=== PATIENT | male | born 1960 | race Two or more races ===

== ENCOUNTER 2018-06-28 10:52 | Outpatient (CLI) | payer OTHER ==
[~2018-06-28 10:52] MED LIST: ACET1TAB14 PO; ALBU18HF2 INH; AMLO10TA6 PO; CARI350T27 PO; CARV12.52 PO; CLOP75TA15 PO; DAPT500V2 IV; GABA-534 PO; INSU100I26 SQ; LEVO750T21 PO; LISI10TA5 PO; MYCO500T PO; OXYC-133 PO; PRED5TAB48 PO; PROM6.256 PO; SIMV10TA6 PO; TACR1CAP7 PO; ZOLP10TA6 PO
== END 2018-06-28 23:59 ==
LOC: WOU 10:52
PROVIDERS: ATTEND Podiatrist Foot & Ankle Surgery
DX: E11.621 Type 2 diabetes mellitus with foot ulcer (principal); L97.514 Non-pressure chronic ulcer of other part of right foot with necrosis of bone; E11.59 Type 2 diabetes mellitus with other circulatory complications; I73.9 Peripheral vascular disease, unspecified; Z89.412 Acquired absence of left great toe; Z89.411 Acquired absence of right great toe; E11.22 Type 2 diabetes mellitus with diabetic chronic kidney disease; I12.0 Hypertensive chronic kidney disease with stage 5 chronic kidney disease or end stage renal disease; N18.6 End stage renal disease; Z87.891 Personal history of nicotine dependence; Z95.828 Presence of other vascular implants and grafts
CPT/HCPCS: 11043; 11046; A6402 ×2; Z7610

== ENCOUNTER 2018-06-29 18:16 | Inpatient (IN) | payer OTHER ==
[~2018-06-29] VITALS: Ht 175.3 cm; Wt 60.1 kg
[~2018-06-29 18:16] MED LIST changes: -AMLO10TA6 PO; +AMLO10TA7 PO
--- NOTE | 2018-06-29 20:15 | NUR ---
BBPA FOR ABNORMAL HGB AND HCT. PT C/O OF PAIN OF THE RL FOOT D/T GANGRENE. PT AAOX 4, VSS. DENIES CP, SOB, DIZZINESS, N/V @ THIS TIME. RR EVEN & UNLABORED, AWAITING EVAL BY MD/TELECOM COORDINATOR & WILL CONT TO MONITOR.
[2018-06-29 21:34] LABS: BASOPHILS # (AUTO) 0.2 /CMM (0.0-0.2); BASOPHILS % (AUTO) 1.4 % (0.0-2.0); EOSINOPHILS % (AUTO) 1.7 % (0.0-6.0); HEMATOCRIT 26 % (39-51); HEMOGLOBIN 8.4 g/dL (13.5-17.5); LYMPHOCYTES # (AUTO) 2.9 /CMM (0.8-4.8); LYMPHOCYTES % (AUTO) 27.5 % (20.0-44.0); MEAN CORPUSCULAR HGB CONC 33 g/dl (31.0-36.0); MEAN CORPUSCULAR VOLUME 74 fL (80-96); MONOCYTES # (AUTO) 0.9 /CMM (0.1-1.30); MONOCYTES % (AUTO) 8.3 % (2.0-12.0); NEUTROPHILS # (AUTO) 6.5 /CMM (1.8-8.9); NEUTROPHILS % (AUTO) 61.1 % (43.0-81.0); PLATELET COUNT (AUTO) 449 /CMM (150-450); RED BLOOD CELL COUNT(AUTO) 3.47 MIL/uL (4.5-6.0); WHITE BLOOD COUNT (AUTO) 10.7 K/uL (4.3-11.0)
[2018-06-29 21:43] LABS: CALCIUM, SERUM 9.2 mg/dL (8.5-10.1); CREATININE 1.3 mg/dL (0.6-1.3); POTASSIUM 4.6 mmol/L (3.5-5.1)
[2018-06-29 21:52] LABS: ALBUMIN 2.7 g/dL (3.4-5.0); BILIRUBIN,DIRECT 0.1 mg/dL (0.0-0.2); BILIRUBIN,TOTAL 0.4 mg/dL (0.2-1.0); TOTAL PROTEIN, SERUM 7.2 g/dL (6.4-8.2)
--- NOTE | 2018-06-29 21:55 | NUR ---
REPORT GIVEN TO SHEILA JENSEN FOR CONT OF CARE.
--- NOTE | 2018-06-29 21:58 | NUR ---
PT PLACED ON THE MONITOR AND CONTINUOUS PULSE OX. PT'S RT FOOT ELEVATED ON A PILLOW.
--- NOTE | 2018-06-29 22:02 | NUR ---
XRAY AT BEDSIDE.
[2018-06-29] MEDS ORDERED: IV NS 0.9% 1,000 ML BAG IV ONE (22:30)
--- NOTE | 2018-06-29 22:40 | NUR ---
PT IS GOING TO [facility]. ADMITTING MD: EH
--- NOTE | 2018-06-29 22:43 | NUR ---
pt is assigned to med surg rm#: [id number], dx: anemia / gangrene on right foot, and accepting md: dr raines
--- NOTE | 2018-06-29 22:44 | NUR ---
LAB CALLED. PRBC WAS CANCELLED BY DR. SHULTZ.
--- NOTE | 2018-06-29 22:45 | NUR ---
CALLING REPORT TO MS NURSE. NURSE IS NOT ASSIGNED.
[2018-06-29 22:47] LABS: IRON, SERUM 25 ug/dl (50-175); TOTAL IRON BINDING CAPACITY 179 ug/dl (250-450)
--- NOTE | 2018-06-29 23:01 | NUR ---
REPORT GIVEN TO MARTA SOSA FOR DEJAH.
--- NOTE | 2018-06-29 23:10 | NUR ---
MS SWITCH TECHNICIAN NOTES Patient came to unit via gurney. Alert, oriented x 4. Breathing even and unlabored. Not in any distress. Denies any chest pain. Peripheral IV from ER running. PICC line on R arm patent. AV shunt on LFA noted. Skin assessment done. Pictures in chart. Gangrene on plantar surface of R foot noted. Cleansed with NS, patted dry, covered with gauze and abdominal pad and wrapped with kerlix. Wound consult ordered. Patient denies smoking, drinking and recreational drug use. Patient is complaining of pain on R foot but does not want pain meds as of now, prefers to pray and meditate. Oriented to call tavares, placed within reach. Bed in low, locked position. Will monitor accordingly
[2018-06-29 23:15] VITALS: BP 139/71
[2018-06-29 23:30] VITALS: BP 139/71
[2018-06-30] MEDS ORDERED: Z GUARD REMEDY 2 OZ OINT TP PRN
[2018-06-30] MEDS ORDERED: ACETAMINOPHEN 325 MG TABLET PO PRN
[2018-06-30] MEDS ORDERED: ZOLPIDEM TARTRATE 5 MG TABLET PO PRN
[2018-06-30] MEDS ORDERED: MAGNESIUM HYDROXIDE 30 ML UDC PO PRN
[2018-06-30 00:16] LABS: EOSINOPHILS % (MANUAL) 1 % (0-4); LYMPHOCYTES % (MANUAL) 21 % (16-48); MONOCYTES % (MANUAL) 7 % (0-11.0); NEUTROPHILS % (MANUAL) 71 (42-76)
--- NOTE | 2018-06-30 00:45 | NUR ---
MS RN NOTES Pharmacy called and asked to clarify regarding lovenox. Patient has no active bleeding. Dr. Kaplan made aware regarding pharmacist's concern. Dr. Kaplan verified to give lovenox. Orders noted and carried out
[2018-06-30] MEDS: ENOXAPARIN SODIUM 40 MG/0.4 ML DISP.SYRIN SQ SCH ×2 (01:02→21:00)
[2018-06-30] MEDS ORDERED: DEXTROSE 50%-WATER 50 ML DISP.SYRIN IV PRN (03:00)
[2018-06-30] MEDS: PROMETHAZINE HCL SYRUP 6.25 MG/5 ML UDC PO SCH ×4 (06:00→17:28)
--- NOTE | 2018-06-30 06:40 | NUR ---
RN NOTES BSL 145. PATIENT REFUSED INSULIN. PER PATIENT, HE DIDN'T HAVE SOMETHING TO EAT SINCE LAST NIGHT.
[2018-06-30] MEDS: BLOOD SUGAR DIAGNOSTIC 1 EACH STRIP IN SCH ×4 (06:45→21:28)
[2018-06-30 06:53] LABS: BASOPHILS # (AUTO) 0.1 /CMM (0.0-0.2); BASOPHILS % (AUTO) 1.1 % (0.0-2.0); EOSINOPHILS % (AUTO) 2.4 % (0.0-6.0); HEMATOCRIT 22 % (39-51); HEMOGLOBIN 7.1 g/dL (13.5-17.5); LYMPHOCYTES # (AUTO) 3.8 /CMM (0.8-4.8); LYMPHOCYTES % (AUTO) 46.8 % (20.0-44.0); MEAN CORPUSCULAR HGB CONC 33 g/dl (31.0-36.0); MEAN CORPUSCULAR VOLUME 74 fL (80-96); MONOCYTES # (AUTO) 0.5 /CMM (0.1-1.30); MONOCYTES % (AUTO) 6.6 % (2.0-12.0); NEUTROPHILS # (AUTO) 3.5 /CMM (1.8-8.9); NEUTROPHILS % (AUTO) 43.1 % (43.0-81.0); PLATELET COUNT (AUTO) 366 /CMM (150-450); RED BLOOD CELL COUNT(AUTO) 2.94 MIL/uL (4.5-6.0)
[2018-06-30] MEDS: INSULIN REGULAR, HUMAN 100 UNIT/ML 3 ML VIAL SQ PRN ×4 (07:01→21:31)
[2018-06-30 07:11] LABS: CALCIUM, SERUM 8.9 mg/dL (8.5-10.1); CREATININE 1.2 mg/dL (0.6-1.3); MAGNESIUM 1.6 mg/dL (1.8-2.4); POTASSIUM 4.4 mmol/L (3.5-5.1)
--- NOTE | 2018-06-30 07:15 | NUR ---
RN CLOSING NOTES PATIENT IN BED, ALERT, ORIENTED X 4. REMAINS STABLE. BREATHING EVEN AND UNLABORED. NOT IN ANY DISTRESS. PICC LINE PURPLE PORT CLOGGED. UNABLE TO FLUSH. PER PATIENT, RN WAS NOT ABLE TO FLUSH IT IN ER. BLOOD VISIBLE IN THE LINE. RED PORT IS PATENT. SAFETY MEASURES IN PLACE. CALL ALEGRIA WITHIN REACH. BED IN LOW, LOCKED POSITION. ENDORSED DEJAH TO AM RN
--- NOTE | 2018-06-30 07:38 | NUR ---
MS RN OPENING NOTES RECEIVED PATIENT IN STABLE CONDITION. IN NO APPARENT DISTRESS. BEDSIDE RAILS ARE UPX2. BED IS LOCKED AND LOWERED. CALL LIGHT IS WITHIN REACH. IV LINE IS INTACT AND PATENT. WILL CONTINUE TO MONITOR PATIENT.
[2018-06-30 08:00] VITALS: BP 137/65
[2018-06-30] MEDS: SIMVASTATIN 10 MG TABLET PO SCH (08:10)
[2018-06-30] MEDS: GABAPENTIN 300 MG CAPSULE PO SCH ×3 (08:10→17:27)
[2018-06-30] MEDS: CARISOPRODOL 350 MG TABLET PO SCH ×2 (08:10→17:27)
[2018-06-30] MEDS: AMLODIPINE BESYLATE 10 MG TABLET PO SCH (08:12)
[2018-06-30] MEDS: CARVEDILOL 12.5 MG TABLET PO SCH ×2 (08:12→17:28)
[2018-06-30] MEDS: LISINOPRIL (10MG) 10 MG TABLET PO SCH (08:13)
[2018-06-30] MEDS: CLOPIDOGREL BISULFATE 75 MG TABLET PO SCH (08:13)
[2018-06-30] MEDS ORDERED: DAPTOMYCIN 500 MG/VIAL VIAL IV SCH (09:00)
[2018-06-30] MEDS: MYCOPHENOLATE MOFETIL 250 MG CAPSULE PO SCH ×2 (10:17→21:14)
[2018-06-30] MEDS: predniSONE 5 MG TABLET PO SCH (10:17)
[2018-06-30] MEDS ORDERED: HYDROMORPHONE 1 MG/1 ML DISP.SYRIN IV PRN (10:30)
[2018-06-30] MEDS: LINEZOLID RTU BAG 600 MG in PREMIX 1 EA IV SCH ×2 (12:56→22:01)
[2018-06-30] MEDS: LEVOFLOXACIN (750 MG) 750 MG TABLET PO SCH (13:34)
[2018-06-30] MEDS: TACROLIMUS ANHYDROUS 1 MG CAPSULE PO SCH ×2 (13:34→21:14)
--- NOTE | 2018-06-30 14:02 | NUR ---
PATIENTS PICC LINE IS NON FUNCTIONING. CALLED NURSING LUMBER LOADER TO PROVIDE PICC LINE NURSE. ZYVOX, AND MAGNESIUM POSTPONED UNTIL PICC LINE NURSE COMES TO ASSESS PICC LINE.
[2018-06-30 16:00] VITALS: BP 112/63
[2018-06-30] MEDS: Magnesium 1GM/D5W 100ML PREMIX 100 ML IV SCH ×2 (17:44→21:11)
[2018-06-30] MEDS: GLUCERNA SHAKE 237 ML CAN PO SCH (17:56)
--- NOTE | 2018-06-30 18:11 | NUR ---
MS RN CLOSING NOTES PATIENT IS STABLE CONDITION. IN NO APPARENT DISTRESS. BEDSIDE RAILS ARE UPX2. BED IS LOCKED AND LOWERED. CALL LIGHT IS WITHIN REACH. IV LINE IS INTACT AND PATENT. ALL NEEDS WERE MET. WILL ENDORSE CARE TO INDUSTRIAL STAFF NURSE NURSE FOR DEJAH.
--- NOTE | 2018-06-30 18:57 | NUR ---
WILL ENDORSE LAST BAG OF MAGNESIUM TO LAUNDERER HAND NURSE.
--- NOTE | 2018-06-30 19:00 | NUR ---
MS RN NOTES RECEIVE PT IN BED A/O X 4, NO PAIN AT THIS TIME. IN STABLE CONDITION, NOT IN DISTRESS, SAFETY MEASURES IN PLACE. WILL CONTINUE TO MONITOR.
[2018-06-30 20:00] VITALS: BP 117/42
[2018-06-30 21:24] VITALS: BP 117/42
[2018-06-30] MEDS ORDERED: ALTEPLASE CATHFLO 2 MG/VIAL XX ONE (21:30)
--- NOTE | 2018-06-30 21:59 | NUR ---
paged hospitalist imitation marble mechanic spoke to Dr. Rosaura akins clarified if she wanted me to transfuse 1 PRBC relayed recent HGB because critical care specialist was calling if we transfuse but no orders. Per Dr. Kaplan No transfusion at this time read back and verified orders noted and carried out. NPO midnight and HOLD lovenox Addendum: 07/01/18 at 0244 by KHANG LUKE RN no active bleeding noted
[2018-06-30] MEDS: HYDROMORPHONE 1 MG/1 ML DISP.SYRIN IV PRN (22:02)
[2018-07-01] MEDS: BLOOD SUGAR DIAGNOSTIC 1 EACH STRIP IN SCH ×4 (05:52→21:37)
[2018-07-01] MEDS: PROMETHAZINE HCL SYRUP 6.25 MG/5 ML UDC PO SCH ×5 (05:52→23:45)
[2018-07-01] MEDS: INSULIN REGULAR, HUMAN 100 UNIT/ML 3 ML VIAL SQ PRN ×4 (05:53→21:44)
--- NOTE | 2018-07-01 06:21 | NUR ---
MS RN CLOSING NOTES REMAINS STABLE. TOLERATING ROOM AIR 98%. NPO MIDNIGHT, ALL NURSING CARE RENDERED. KEPT CLEAN AND DRY AND COMFORTABLE, NEEDS ATTENDED AND ANTICIPATED. OFFLOAD HEELS AND ELBOWS. ON LOW BED AT ALL TIMES TO ENSURE SAFETY. SAFE HAZARD FREE ENVIRONMENT PROVIDED. CALL LIGHT WITHIN EASY TO REACH. WILL ENDORSE NEXT SHIFT CONTINUITY OF CARE
[2018-07-01] MEDS ORDERED: ANESTHESIA TRAY IN PYXIS 1 EA TRAY MC ONE (06:24)
[2018-07-01] MEDS ORDERED: BUPIVACAINE MPF 0.5% W/EPI INJ 30 ML VIAL ONE (06:24)
[2018-07-01] MEDS ORDERED: LIDOCAINE HCL/PF 1% 30 ML SDV ONE (06:24)
--- NOTE | 2018-07-01 06:51 | NUR ---
DENTAL PROSTHETIST BY 2 O.R TEAM VIA MAMADOU PT LEFT FOR SURGERY TODAY VS STABLE
--- NOTE | 2018-07-01 07:00 | NUR ---
MS RN OPENING NOTE RECEIVED REPORT FROM SHEILA QUIÑONEZ. PATIENT HEADED DOWN TO SURGERY IN STABLE CONDITION. WILL CONTINUE CARE WHEN PATIENT RETURNS
--- NOTE | 2018-07-01 07:10 | NUR ---
WOUND CARE CONSULT WOUND CARE RECEIVED CONSULT FOR GANGRENE ON R PLANTAR FOOT. WOUND CARE WILL DEFER CONSULT AND TREATMENT PLANS TO DPM DR HERNANDEZ HE IS CURRENTLY FOLLOWING. PATIENT WITH FABIANA AT 17, ALL PRESSURE ULCER PREVENTION MEASURES ARE NOTED TO BE IN PLACE. WILL SEE PRN.
[2018-07-01 07:24] LABS: BASOPHILS # (AUTO) 0.1 /CMM (0.0-0.2); BASOPHILS % (AUTO) 0.7 % (0.0-2.0); EOSINOPHILS % (AUTO) 3.4 % (0.0-6.0); HEMATOCRIT 23 % (39-51); HEMOGLOBIN 7.5 g/dL (13.5-17.5); LYMPHOCYTES # (AUTO) 2.9 /CMM (0.8-4.8); LYMPHOCYTES % (AUTO) 33.6 % (20.0-44.0); MEAN CORPUSCULAR HGB CONC 32 g/dl (31.0-36.0); MEAN CORPUSCULAR VOLUME 74 fL (80-96); MONOCYTES # (AUTO) 0.8 /CMM (0.1-1.30); MONOCYTES % (AUTO) 9.7 % (2.0-12.0); NEUTROPHILS # (AUTO) 4.6 /CMM (1.8-8.9); NEUTROPHILS % (AUTO) 52.6 % (43.0-81.0); PLATELET COUNT (AUTO) 413 /CMM (150-450); RED BLOOD CELL COUNT(AUTO) 3.18 MIL/uL (4.5-6.0); WHITE BLOOD COUNT (AUTO) 8.7 K/uL (4.3-11.0)
[2018-07-01 07:31] LABS: CALCIUM, SERUM 9.2 mg/dL (8.5-10.1); CREATININE 1.3 mg/dL (0.6-1.3); MAGNESIUM 2.1 mg/dL (1.8-2.4); PHOSPHORUS 3.2 mg/dL (2.5-4.9); POTASSIUM 4.4 mmol/L (3.5-5.1)
--- NOTE | 2018-07-01 07:47 | NUR ---
MS RN NOTE PATIENT BACK FROM OR. OR CANCELLED, PER ELLA BRUSH OR BROOM CUTTER PATIENT IS NOT STABLE ENOUGH TO DO PROCEDURE. SPOKE WITH DR. AVILEZ AND WILL DO BEDSIDE RIGHT FOOT WOUND DEBRIDEMENT CONSENT AT BEDSIDE AND SIGNED. MICHELLE ANGLIN AND [facility] Addendum: 07/01/18 at 0844 by JOE ELIZONDO RN PATIENT IN BED ALERT AND ORIENTED ALERT AND ORIENTED x4 NO PAIN AT THIS TIME NO SOB OR DISTRESS NOTED ON ROOM AIR TOLERATING WELL. ABLE TO COMMUNICATE NEEDS. CALL LIGHT WITHIN REACH. SAFETY MEASURES IMPLEMENTED. HEMATOLOGY AND NEPHRO TO BE CONSULTED. WILL CONTINUE TO CONTINUITY OF CARE
[2018-07-01 08:00] VITALS: BP 110/74
[2018-07-01] MEDS: GLUCERNA SHAKE 237 ML CAN PO SCH ×3 (08:00→17:20)
--- NOTE | 2018-07-01 08:36 | NUR ---
MS RN NOTE PER DR AVILEZ TO [facility] FOR CONSULT. TICKET SCHEDULER DOCTOR PAGED AWAITING CALL BACK
[2018-07-01] MEDS: DAKINS HALF STRENGTH (0.25%) 480 ML BOTTLE TOP SCH (09:00)
[2018-07-01] MEDS: MYCOPHENOLATE MOFETIL 250 MG CAPSULE PO SCH ×2 (09:29→20:31)
[2018-07-01] MEDS: TACROLIMUS ANHYDROUS 1 MG CAPSULE PO SCH ×2 (09:30→20:30)
[2018-07-01] MEDS: CLOPIDOGREL BISULFATE 75 MG TABLET PO SCH (09:30)
[2018-07-01] MEDS: CARISOPRODOL 350 MG TABLET PO SCH ×2 (09:30→17:21)
[2018-07-01] MEDS: predniSONE 5 MG TABLET PO SCH (09:30)
[2018-07-01] MEDS: SIMVASTATIN 10 MG TABLET PO SCH (09:30)
[2018-07-01] MEDS: GABAPENTIN 300 MG CAPSULE PO SCH ×3 (09:30→17:21)
[2018-07-01] MEDS: LISINOPRIL (10MG) 10 MG TABLET PO SCH (09:31)
[2018-07-01] MEDS: AMLODIPINE BESYLATE 10 MG TABLET PO SCH (09:31)
[2018-07-01] MEDS: CARVEDILOL 12.5 MG TABLET PO SCH ×2 (09:31→17:21)
[2018-07-01] MEDS: LINEZOLID RTU BAG 600 MG in PREMIX 1 EA IV SCH (09:37)
[2018-07-01] MEDS: HYDROMORPHONE 1 MG/1 ML DISP.SYRIN IV PRN ×3 (09:45→20:30)
--- NOTE | 2018-07-01 11:50 | NUR ---
MS RN NOTE BLOOD SUGAR 256 6 UNITS OF INSULIN GIVEN AND FOOD AT BEDSIDE
[2018-07-01] MEDS: LEVOFLOXACIN (750 MG) 750 MG TABLET PO SCH (12:54)
--- NOTE | 2018-07-01 15:16 | NUR ---
MS RN NOTE PATIENT REQUESTING PAIN MEDICATION. DILAUDID IV PUSH FOR 9/10 PAIN ON RIGHT FOOT. PAIN MEDICATION GIVEN. RESPIRATIONS 18. NO SIGNS OF DISTRESS NOTED. WILL REASSESS FOR EFFECTIVENESS
--- NOTE | 2018-07-01 15:18 | NUR ---
MS RN NOTE WHILE AT BEDSIDE TALKING TO PATIENT ABOUT COLONOSCOPY/EGD PROCEDURE WITH DR. TOMLINSON PATIENT STILL REFUSING TO HAVE PREP DONE AND PROCEDURE DONE. PATIENT STATED "IF IT'S NOT BROKEN IT DOESNT NEED TO BE FIXED, I DONT WANT ANYTHING GOING INTO MY MOUTH OR RECTUM. NO GI EXAMS. GI MD AWARE
[2018-07-01 16:00] VITALS: BP 125/56
--- NOTE | 2018-07-01 16:28 | NUR ---
MS RN NOTE NOTIFIED DR GILLESPIE IN REGARDS TO PATIENT CONSIDERING BLOOD TRANSFUSION. AWAITING RESPONSE
[2018-07-01] MEDS ORDERED: EPOETIN ALFA (20,000 UNIT) 20,000 UNIT/ML VIAL SQ ONE ×2 (16:30→18:00)
--- NOTE | 2018-07-01 18:00 | NUR ---
MS RN NOTE BLOOD SUGAR-204 4 UNITS GIVEN FOOD AT BEDSIDE
--- NOTE | 2018-07-01 18:11 | NUR ---
ms rn note one time dose of epogen sq given.
--- NOTE | 2018-07-01 18:17 | NUR ---
ms rn note spoke with patient in regards to blood transfusion patient stated " i spoke with my daughter i am going to hold off on the transfusion for now until its absolutely necessary because of my transplant i dont want any rejection. so for now i will not get the blood. i will wait for my labs in the morning and discuss with in the morning. informed doctor el about patient refusing blood at this time. will inform plant operator/shift supervisor nurse for lulu.
--- NOTE | 2018-07-01 18:21 | NUR ---
MS RN CLOSING NOTE PATIENT SITTING IN CHAIR ALERT AND ORIENTED x4 NO PAIN AT THIS TIME NO SOB OR DISTRESS NOTED ON ROOM AIR TOLERATING WELL. ABLE TO COMMUNICATE NEEDS. CALL LIGHT WITHIN REACH AT ALL TIMES. SAFETY MEASURES IMPLEMENTED. HEMATOLOGY AND NEPHRO CONSULTED WITH PATIENT PER DR. HERNANDEZ. ALL DUE MEDICATIONS GIVEN ORDERED. ALL NURSING CARE NEEDS ATTENDED TO NEEDED. PICC LINE KEPT CLEAN DRY AND INTACT. IV INTACT AND PATENT AND FLUSHES WELL. SURGERY FOR RIGHT FOOT HELD PER DR. HERNANDEZ. RIGHT FOOT WOUND DEBRIDEMENT DONE AT BEDSIDE THIS MORNING. PATIENT OFFERED CRUTCHES AT THIS TIME TO GET AROUND ROOM AND RESTROOM. ONE TIME DOSE OF EPOGEN GIVEN. PATIENT REFUSED BLOOD TRANSFUSION AND EGD/COLONOSCOPY MD AWARE. PAIN MEDICATION GIVEN NEEDED. BLOOD SUGAR CHECKED AND INSULIN GIVEN PRN. WILL ENDORSE TO LONG WALL SHEAR OPERATOR NURSE FOR DEJAH
--- NOTE | 2018-07-01 19:28 | NUR ---
MS RN NOTES RECEIVE PT SITTING IN THE CHAIR A/O X 4, IN STABLE CONDITION, NOT IN DISTRESS, SAFETY MEASURES IN PLACE. WILL CONTINUE TO MONITOR.
[2018-07-01 20:00] VITALS: BP 103/48
[2018-07-01] MEDS: LINEZOLID 600 MG TABLET PO SCH (20:31)
[2018-07-01] MEDS: ENOXAPARIN SODIUM 40 MG/0.4 ML DISP.SYRIN SQ SCH (20:35)
[2018-07-01] MEDS: ZOLPIDEM TARTRATE 10 MG TABLET PO PRN (21:37)
[2018-07-01 21:52] LABS: OCCULT BLOOD STOOL NEGATIVE (NEGATIVE)
[2018-07-02] MEDS: PROMETHAZINE HCL SYRUP 6.25 MG/5 ML UDC PO SCH ×4 (05:00→23:14)
[2018-07-02] MEDS: BLOOD SUGAR DIAGNOSTIC 1 EACH STRIP IN SCH ×4 (05:49→21:03)
[2018-07-02] MEDS: INSULIN REGULAR, HUMAN 100 UNIT/ML 3 ML VIAL SQ PRN ×4 (05:49→21:25)
--- NOTE | 2018-07-02 06:01 | NUR ---
MS RN NOTES INSULIN 2 UNITS NON ADMIN PT REFUSED DESPITE EXPLAINING RISKS AND BENEFITS OFFERED 3 TIMES STILL REFUSED. PER PT HE'S BLOOD SUGAR IS FINE. 152 MG/DL
--- NOTE | 2018-07-02 06:12 | NUR ---
MS RN CLOSING NOTES ASLEEP AND EASILY AWAKEN, TOLERATING ROOM AIR 99%. STABLE PT. PT STILL REFUSED BLOOD TRANSFUSION DESPITE EXPLAINING RISKS AND BENEFITS. KEPT CLEAN AND DRY AND COMFORTABLE, ALL NURSING CARE RENDERED. NEEDS ATTENDED AND ANTICIPATED. OFFLOAD HEELS AND ELBOWS. GOOD SKIN CARE. ON LOW BED AT ALL TIMES TO ENSURE SAFETY. SAFE HAZARD FREE ENVIRONMENT PROVIDED. CALL LIGHT WITHIN EASY TO REACH. WILL ENDORSE NEXT SHIFT CONTINUITY OF CAR
[2018-07-02 07:04] LABS: BASOPHILS % (AUTO) 0.5 % (0.0-2.0); EOSINOPHILS % (AUTO) 2.2 % (0.0-6.0); HEMATOCRIT 22 % (39-51); HEMOGLOBIN 7.2 g/dL (13.5-17.5); LYMPHOCYTES # (AUTO) 3.1 /CMM (0.8-4.8); LYMPHOCYTES % (AUTO) 37.6 % (20.0-44.0); MEAN CORPUSCULAR HGB CONC 33 g/dl (31.0-36.0); MEAN CORPUSCULAR VOLUME 73 fL (80-96); MONOCYTES # (AUTO) 0.8 /CMM (0.1-1.30); MONOCYTES % (AUTO) 9.9 % (2.0-12.0); NEUTROPHILS # (AUTO) 4.1 /CMM (1.8-8.9); NEUTROPHILS % (AUTO) 49.8 % (43.0-81.0); PLATELET COUNT (AUTO) 376 /CMM (150-450); RED BLOOD CELL COUNT(AUTO) 2.99 MIL/uL (4.5-6.0); WHITE BLOOD COUNT (AUTO) 8.2 K/uL (4.3-11.0)
[2018-07-02 07:12] LABS: CALCIUM, SERUM 8.8 mg/dL (8.5-10.1); CREATININE 1.4 mg/dL (0.6-1.3); MAGNESIUM 1.8 mg/dL (1.8-2.4); PHOSPHORUS 3.4 mg/dL (2.5-4.9); POTASSIUM 4.5 mmol/L (3.5-5.1)
--- NOTE | 2018-07-02 07:42 | NUR ---
MS RN NOTES PATIENT RECEIVED RESTING INSIDE ROOM. SLEEPING, EASILY AROUSABLE THROUGH VERBAL AND TACTILE STIMULI. BREATHING EVEN AND UNLABORED. DENIES ANY DISCOMFORT AT THIS TIME. PATIENT CALM AND RELAXED. PICCLINE ON OSMAN, NO DRAINAGE NOTED ON SITE. WILL CONTINUE TO MONITOR. BED LOCKED AND IN LOW POSITION. BILATERAL UPPER SIDE RAILS UP AND LOCKED. CALL LIGHT WITHIN EASY REACH
[2018-07-02 08:00] VITALS: BP 119/46
[2018-07-02] MEDS: LINEZOLID 600 MG TABLET PO SCH ×2 (09:06→20:38)
[2018-07-02] MEDS: predniSONE 5 MG TABLET PO SCH (09:06)
[2018-07-02] MEDS: GABAPENTIN 300 MG CAPSULE PO SCH ×3 (09:06→16:57)
[2018-07-02] MEDS: CARVEDILOL 12.5 MG TABLET PO SCH ×2 (09:06→16:57)
[2018-07-02] MEDS: SIMVASTATIN 10 MG TABLET PO SCH (09:06)
[2018-07-02] MEDS: LISINOPRIL (10MG) 10 MG TABLET PO SCH (09:06)
[2018-07-02] MEDS: CARISOPRODOL 350 MG TABLET PO SCH ×2 (09:07→16:57)
[2018-07-02] MEDS: TACROLIMUS ANHYDROUS 1 MG CAPSULE PO SCH ×2 (09:08→20:38)
[2018-07-02] MEDS: MYCOPHENOLATE MOFETIL 250 MG CAPSULE PO SCH ×2 (09:08→20:36)
[2018-07-02] MEDS: AMLODIPINE BESYLATE 10 MG TABLET PO SCH (09:08)
[2018-07-02] MEDS: CLOPIDOGREL BISULFATE 75 MG TABLET PO SCH (09:24)
[2018-07-02] MEDS: HYDROMORPHONE 1 MG/1 ML DISP.SYRIN IV PRN ×3 (09:28→20:39)
[2018-07-02] MEDS: GLUCERNA SHAKE 237 ML CAN PO SCH ×3 (10:38→16:57)
[2018-07-02] MEDS: LEVOFLOXACIN (750 MG) 750 MG TABLET PO SCH (12:29)
[2018-07-02] MEDS: SOD FERRIC GLUC 125 MG in IV NS 0.9% 100 ML IV SCH (13:20)
[2018-07-02] MEDS: DAKINS HALF STRENGTH (0.25%) 480 ML BOTTLE TOP SCH (13:20)
[2018-07-02 16:28] VITALS: BP 140/47
--- NOTE | 2018-07-02 19:05 | NUR ---
MS RN NOTES PATIENT RESTING INSIDE ROOM. AWAKE, ALERT AND ORIENTED X4. VERBALLY RESPONSIVE AND RESPONDS TO VERBAL AND TACTILE STIMULI. BREATHING EVEN AND UNLABORED. NO ACUTE DISTRESS. ALL NURSING NEEDS ATTENDED AND MET. WOUND CARE RENDERED TO RIGHT FOOT AND PATIENT TOLERATED WELL. PATIENT KEPT CLEAN, DRY AND COMFORTABLE. WILL ENDORSE TO INCOMING SHIFT FOR DEJAH. BED LOCKED AND IN LOW POSITION. BILATERAL UPPER SIDE RAILS UP AND LOCKED. CALL LIGHT WITHIN EASY REACH
--- NOTE | 2018-07-02 19:07 | NUR ---
MS RN NOTES RECEIVE PT IN BED A/O X 4, IN STABLE CONDITION, NOT IN DISTRESS, SAFETY MEASURES IN PLACE. WILL CONTINUE TO MONITOR.
[2018-07-02 20:00] VITALS: BP 121/68
[2018-07-02 20:20] VITALS: BP 121/68
[2018-07-02] MEDS: ENOXAPARIN SODIUM 40 MG/0.4 ML DISP.SYRIN SQ SCH (20:36)
[2018-07-02] MEDS: ZOLPIDEM TARTRATE 10 MG TABLET PO PRN (20:38)
--- NOTE | 2018-07-02 21:54 | NUR ---
MS RN NOTES NON ADMIN OF LOVENOX PT REFUSED MEDICATION DESPITE EXPLAINING RISKS AND BENEFITS ALSO H/H IS LOW. HOSPITALIST AWARE
[2018-07-03] MEDS: INSULIN REGULAR, HUMAN 100 UNIT/ML 3 ML VIAL SQ PRN ×4 (05:56→21:59)
[2018-07-03] MEDS: BLOOD SUGAR DIAGNOSTIC 1 EACH STRIP IN SCH ×4 (05:56→21:49)
[2018-07-03] MEDS: PROMETHAZINE HCL SYRUP 6.25 MG/5 ML UDC PO SCH ×3 (05:57→18:02)
--- NOTE | 2018-07-03 06:28 | NUR ---
MS RN CLOSING NOTES ASLEEP AND EASILY AWAKEN, NOT IN DISTRESS. KEPT CLEAN AND DRY AND COMFORTABLE, ALL NURSING CARE RENDERED. NEEDS ATTENDED AND ANTICIPATED. OFFLOAD HEELS AND ELBOWS. GOOD SKIN CARE PROVIDED. NO COMPLAIN OF PAIN AT THIS TIME. ON LOW BED AT ALL TIMES TO ENSURE SAFETY. SAFE HAZARD FREE ENVIRONMENT PROVIDED. CALL LIGHT WITHIN EASY TO REACH. WILL ENDORSE NEXT SHIFT CONTINUITY OF CARE
[2018-07-03 06:55] LABS: BASOPHILS # (AUTO) 0.1 /CMM (0.0-0.2); BASOPHILS % (AUTO) 0.8 % (0.0-2.0); EOSINOPHILS % (AUTO) 1.9 % (0.0-6.0); HEMATOCRIT 23 % (39-51); HEMOGLOBIN 7.5 g/dL (13.5-17.5); LYMPHOCYTES # (AUTO) 2.9 /CMM (0.8-4.8); LYMPHOCYTES % (AUTO) 35.8 % (20.0-44.0); MEAN CORPUSCULAR HGB CONC 33 g/dl (31.0-36.0); MEAN CORPUSCULAR VOLUME 73 fL (80-96); MONOCYTES # (AUTO) 0.8 /CMM (0.1-1.30); MONOCYTES % (AUTO) 10.4 % (2.0-12.0); NEUTROPHILS # (AUTO) 4.1 /CMM (1.8-8.9); NEUTROPHILS % (AUTO) 51.1 % (43.0-81.0); PLATELET COUNT (AUTO) 346 /CMM (150-450); RED BLOOD CELL COUNT(AUTO) 3.12 MIL/uL (4.5-6.0)
--- NOTE | 2018-07-03 07:10 | NUR ---
RN OPENING NOTES RECEIVED PT. WATCHING TV IN BED A&OX4. BREATHING UNLABORED ON ROOM AIR. PT. C/O PAIN OF THE RIGHT FOOT, OFFERED PT. PAIN MEDICATION. BED IS IN LOWEST, AND LOCKED POSITION. 2 SIDE RAILS UP, AND INSTRUCTED PT. TO USE CALL LIGHT FOR ASSISTANCE. ALL NEEDS MET. WILL CONTINUE TO ASSESS AND MONITOR
[2018-07-03 07:14] LABS: CREATININE 1.4 mg/dL (0.6-1.3); MAGNESIUM 1.7 mg/dL (1.8-2.4); PHOSPHORUS 3.9 mg/dL (2.5-4.9); POTASSIUM 4.6 mmol/L (3.5-5.1)
[2018-07-03 08:00] VITALS: BP 147/63
[2018-07-03] MEDS: GLUCERNA SHAKE 237 ML CAN PO SCH ×3 (08:28→16:34)
[2018-07-03] MEDS: LINEZOLID 600 MG TABLET PO SCH ×2 (08:48→21:45)
[2018-07-03] MEDS: GABAPENTIN 300 MG CAPSULE PO SCH ×3 (08:49→17:20)
[2018-07-03] MEDS: predniSONE 5 MG TABLET PO SCH (08:49)
[2018-07-03] MEDS: CARISOPRODOL 350 MG TABLET PO SCH ×2 (08:49→17:20)
[2018-07-03] MEDS: MYCOPHENOLATE MOFETIL 250 MG CAPSULE PO SCH ×2 (08:52→21:45)
[2018-07-03] MEDS: TACROLIMUS ANHYDROUS 1 MG CAPSULE PO SCH ×2 (08:52→21:45)
[2018-07-03] MEDS: CLOPIDOGREL BISULFATE 75 MG TABLET PO SCH (08:52)
[2018-07-03] MEDS: SIMVASTATIN 10 MG TABLET PO SCH (08:52)
[2018-07-03] MEDS: DAKINS HALF STRENGTH (0.25%) 480 ML BOTTLE TOP SCH (08:53)
[2018-07-03] MEDS: LISINOPRIL (10MG) 10 MG TABLET PO SCH (09:00)
[2018-07-03] MEDS: CARVEDILOL 12.5 MG TABLET PO SCH ×2 (09:08→17:24)
[2018-07-03] MEDS: AMLODIPINE BESYLATE 10 MG TABLET PO SCH (09:09)
[2018-07-03] MEDS: HYDROMORPHONE 1 MG/1 ML DISP.SYRIN IV PRN ×4 (09:19→21:44)
[2018-07-03 09:56] LABS: EOSINOPHILS % (MANUAL) 2 % (0-4); LYMPHOCYTES % (MANUAL) 34 % (16-48); MONOCYTES % (MANUAL) 6 % (0-11.0); NEUTROPHILS % (MANUAL) 58 (42-76)
[2018-07-03] MEDS: Magnesium 1GM/D5W 100ML PREMIX 100 ML IV SCH ×2 (10:20→11:37)
[2018-07-03] MEDS: HYDROCODONE/APAP 5/325MG 1 EACH TABLET PO PRN (10:33)
--- NOTE | 2018-07-03 11:00 | NUR ---
PT. WAS SEEN BY MANAGER ORACLE DATABASE. PER DR. HATCH, THERE IS A PLAN FOR A BONE MARROW BIOPSY, NO NEW ORDERS GIVEN. DR. GILLESPIE WAS INFORMED ABOUT THE BONE MARROW BIOPSY AND GAVE A ONE TIME ORDER FOR DILAUDID 2 MG IVP 3-5 MINUTES BEFORE BONE MARROW BIOPSY PROCEDURE.
[2018-07-03] MEDS: LEVOFLOXACIN (750 MG) 750 MG TABLET PO SCH (13:02)
[2018-07-03] MEDS ORDERED: HYDROMORPHONE INJ 2 MG/ML DISP.SYRIN IVP PRN (13:30)
[2018-07-03] MEDS ORDERED: HYDROMORPHONE INJ 2 MG/ML DISP.SYRIN IVP ONE (13:30)
[2018-07-03] MEDS: SOD FERRIC GLUC 125 MG in IV NS 0.9% 100 ML IV SCH (14:16)
[2018-07-03 16:00] VITALS: BP 114/49
--- NOTE | 2018-07-03 18:47 | NUR ---
RN CLOSING NOTES PT. IS IN BED WATCHING TV, A&OX4. BREATHING UNLABORED ON ROOM AIR. BED IS IN LOWEST, AND LOCKED POSITION. IV ACCESS IS INTACT AND PATENT. URINAL IS WITHIN REACH. 2 SIDE RAILS UP, AND INSTRUCTED PT. TO USE CALL LIGHT FOR ASSISTANCE. ALL NEEDS MET. WILL ENDORSE REPORT TO NURSE.
[2018-07-03 20:00] VITALS: BP 149/58
[2018-07-03] MEDS ORDERED: LIDOCAINE HCL/PF 1% 30 ML SDV IJ SCH (21:00)
[2018-07-03] MEDS: ENOXAPARIN SODIUM 40 MG/0.4 ML DISP.SYRIN SQ SCH (21:00)
--- NOTE | 2018-07-03 21:30 | NUR ---
MS RN OPENING NOTES: RECEIVED PT FROM RNANJEL. PT IS A/OX4. PT IS ON ROOM AIR AND TOLERATING WELL. MIDLINE REMAINS INTACT AND IN PLACE. HAS BEEN FLUSHED. PT ALSO HAS ANOTHER IV AND IS PATENT AND INTACT. CURRENTLY H/L. PT ON TELEPHONE AT THIS TIME. BED KEPT IN LOW, LOCKED POSITION, AND SIDE RAILS X 2UP. WILL CONTINUE TO MONITOR PT.
--- NOTE | 2018-07-03 21:45 | NUR ---
MS RN NOTES: PT REQUESTING FOR PAIN MEDICATION. PT WAS ADMINISTERED DILAUDID 1MG VIA IV 10/10 PAIN ON RIGHT FOOT. ALSO WANTS PAIN MEDICATION BEFORE WOUND TX.
--- NOTE | 2018-07-03 22:00 | NUR ---
MS RN NOTES: BLOOD SUGAR WAS 212. 4 UNITS OF INSULIN WAS ADMINISTERED. BANANA AND CHICA CRACKERS GIVEN TO PT. WILL CONTINUE TO MONITOR.
--- NOTE | 2018-07-03 22:13 | NUR ---
MS RN NOTES: WOUND TX PERFORMED.
[2018-07-03] MEDS: ZOLPIDEM TARTRATE 10 MG TABLET PO PRN (22:14)
--- NOTE | 2018-07-03 22:15 | NUR ---
MS RN NOTES: PT REQUESTING FOR SLEEPING AID. WOUND TX PERFORMED ON RIGHT FOOT. PT WAS ADMINISTERED AMBIEN 10MG PO. ALSO, CONSENT OBTAINED FOR BMBX AND PLACED IN CHART.
--- NOTE | 2018-07-03 22:24 | NUR ---
MS RN NOTES: SPOKE WITH DR. MARIN. INFORMED HER FOR NOW THAT WE ARE UNABLE TO GET SPINAL NEEDLE AND FORMALIN BOTTLES X2. HAVE AM NURSE OBTAIN AND CALL WELL. ALSO, HOLD LOVENOX DOSE FOR TONIGHT.
--- NOTE | 2018-07-03 23:02 | NUR ---
MS SOSA NOTES: ENDORSED TO POLINA SOSA. PT IN STABLE CONDITION. Addendum: 07/03/18 at 2324 by TAMI OLIVARES RN MISSING ITEMS FOR BONE MARROW BIOPSY TO BE OBTAINED IN THE AM AND HAVE AM NURSE CALL DR. MARIN.
--- NOTE | 2018-07-03 23:05 | NUR ---
RN OPENING NOTE: PATIENT AWAKE, ALERT AND ORIENTED X 4, NO SOB, NO ACUTE DISTRESS, BREATHING EVEN AND UNLABORED, NO S/S OF PAIN AND DISCOMFORT, RIGHT UA PICC LINE AND RIGHT FA SL INTACT AND PATENT. ALL NEEDS ATTENDED AND MET, WILL CONTINUE TO MONITOR
[2018-07-04] MEDS: PROMETHAZINE HCL SYRUP 6.25 MG/5 ML UDC PO SCH ×4 (06:00→17:34)
[2018-07-04] MEDS: BLOOD SUGAR DIAGNOSTIC 1 EACH STRIP IN SCH ×4 (06:48→21:12)
--- NOTE | 2018-07-04 07:27 | NUR ---
PATIENT STABLE, AWAKE, COOPERATIVE, NO SOB, NO ACUTE DISTRESS, BREATHING EVEN AND UNLABORED, NO S/S OF PAIN AND DISCOMFORT, ENDORSED TO THE NEXT SHIFT
[2018-07-04 07:36] LABS: BASOPHILS # (AUTO) 0.1 /CMM (0.0-0.2); BASOPHILS % (AUTO) 0.7 % (0.0-2.0); EOSINOPHILS % (AUTO) 2.7 % (0.0-6.0); HEMATOCRIT 23 % (39-51); HEMOGLOBIN 7.5 g/dL (13.5-17.5); LYMPHOCYTES # (AUTO) 3.3 /CMM (0.8-4.8); LYMPHOCYTES % (AUTO) 37.8 % (20.0-44.0); MEAN CORPUSCULAR HGB CONC 33 g/dl (31.0-36.0); MEAN CORPUSCULAR VOLUME 73 fL (80-96); MONOCYTES # (AUTO) 0.6 /CMM (0.1-1.30); MONOCYTES % (AUTO) 6.3 % (2.0-12.0); NEUTROPHILS # (AUTO) 4.6 /CMM (1.8-8.9); NEUTROPHILS % (AUTO) 52.5 % (43.0-81.0); PLATELET COUNT (AUTO) 365 /CMM (150-450); RED BLOOD CELL COUNT(AUTO) 3.12 MIL/uL (4.5-6.0); WHITE BLOOD COUNT (AUTO) 8.8 K/uL (4.3-11.0)
[2018-07-04 07:47] LABS: CREATININE 1.4 mg/dL (0.6-1.3); PHOSPHORUS 3.8 mg/dL (2.5-4.9); POTASSIUM 4.7 mmol/L (3.5-5.1)
[2018-07-04 08:00] VITALS: BP 142/71
--- NOTE | 2018-07-04 08:00 | NUR ---
R NOTES RECEIVED PATIENT IN THE BED, A/O X3. ENCOURAGED TO EXPRESS FEELINGS FEELINGS AND CONCERNS TO NSG. PATIENT WAS COMPLAINING OF PAIN LOWER EXTREMITIES. SCHEDULED MEDICATION ADMINISTERED,V /S STABLE,PATIENT HAS RIGHT FOOT WOUND, DRESSING CHANGED. NEEDS ATTENDED AND ANTICIPATED, CALL LIGHT WITHIN TO REACH, SAFETY PRECAUTION MAINTAINED ALL THE TIME.
[2018-07-04] MEDS: GABAPENTIN 300 MG CAPSULE PO SCH ×3 (08:26→17:35)
[2018-07-04] MEDS: TACROLIMUS ANHYDROUS 1 MG CAPSULE PO SCH ×2 (08:26→21:10)
[2018-07-04] MEDS: CARISOPRODOL 350 MG TABLET PO SCH ×2 (08:26→17:35)
[2018-07-04] MEDS: CLOPIDOGREL BISULFATE 75 MG TABLET PO SCH (08:26)
[2018-07-04] MEDS: SIMVASTATIN 10 MG TABLET PO SCH (08:26)
[2018-07-04] MEDS: predniSONE 5 MG TABLET PO SCH (08:27)
[2018-07-04] MEDS: LISINOPRIL (10MG) 10 MG TABLET PO SCH (08:28)
[2018-07-04] MEDS: AMLODIPINE BESYLATE 10 MG TABLET PO SCH (08:29)
[2018-07-04] MEDS: CARVEDILOL 12.5 MG TABLET PO SCH ×2 (08:29→17:35)
[2018-07-04] MEDS: DAKINS HALF STRENGTH (0.25%) 480 ML BOTTLE TOP SCH (08:32)
[2018-07-04] MEDS: MYCOPHENOLATE MOFETIL 250 MG CAPSULE PO SCH ×2 (08:39→21:09)
[2018-07-04] MEDS: HYDROMORPHONE 1 MG/1 ML DISP.SYRIN IV PRN ×3 (08:41→21:11)
--- NOTE | 2018-07-04 08:41 | NUR ---
RN NOTES ADMINISTERED DILAUDID 1 MG /ML IV PUSH FOR LOWER BILATERAL EXTREMITIES PAIN 10/10 ON PAIN SCALE PER PATIENT REQUEST, V/S TAKEN BP- 141/71, P-71, CONTINUED MONITORING.
[2018-07-04] MEDS: GLUCERNA SHAKE 237 ML CAN PO SCH ×3 (08:54→17:34)
[2018-07-04] MEDS: LINEZOLID 600 MG TABLET PO SCH ×2 (08:54→21:10)
[2018-07-04 10:58] LABS: EOSINOPHILS % (MANUAL) 2 % (0-4); LYMPHOCYTES % (MANUAL) 38 % (16-48); MONOCYTES % (MANUAL) 4 % (0-11.0); NEUTROPHILS % (MANUAL) 56 (42-76)
--- NOTE | 2018-07-04 11:58 | NUR ---
RN NOTES ADMINISTERED DILAUDID 2 MG/ML IV PUSH FOR BLE FOR PAIN 04/21 PER PATIENT REQUEST, BP- 196/64, P-71, CONTINUED MONITORING.
[2018-07-04] MEDS: LEVOFLOXACIN (750 MG) 750 MG TABLET PO SCH (12:17)
[2018-07-04] MEDS: INSULIN REGULAR, HUMAN 100 UNIT/ML 3 ML VIAL SQ PRN ×3 (12:30→21:20)
--- NOTE | 2018-07-04 12:31 | NUR ---
RN NOTES MEDICATION WERE ADMINISTERED FOR PAIN EFFECTIVE, PATIENT EATING. BS-192 MG/DL COVERAGE GIVEN, CALL LIGHT WITHIN TO REACH. SAFETY PRECAUTION MAINTAINED ALL THE TIME.
--- NOTE | 2018-07-04 13:50 | NUR ---
RN NOTES PATIENTREATING IN THE BED. MEDICATION WERE ADMINISTERED FOR PAIN EFFECTIVE, CONTINUED MONITORING.
[2018-07-04] MEDS: SOD FERRIC GLUC 125 MG in IV NS 0.9% 100 ML IV SCH (15:47)
--- NOTE | 2018-07-04 15:53 | NUR ---
rn notes administered Dilaudid 2 mg/ml iv push for BLE pain 02/19 per patient request, v/s taken bp-130/52, p-73, continued monitoring.
[2018-07-04 16:00] VITALS: BP_SYST 129; BP_SYST 130; BP_DIAS 52
--- NOTE | 2018-07-04 18:30 | NUR ---
rn notes patient stable, scheduled medication administered, v/s table, medication were administered for pain effected. bs-248 m/dl, coverage given. needs attended and anticipated, call light within to reach, continued monitoring. endorsed oncoming nurse for plan of care.
--- NOTE | 2018-07-04 19:21 | NUR ---
RECEIVED PT SITTING AT THE EDGE OF THE BED AWAKE AND ALERT. BREATHING EVENLY. NO SOB. NAD. SKIN WARM AND DRY. DRESSING ON RLE C/D/I. NO C/O PAIN OR DISCOMFORT AT THIS TIME. PT AWARE OF THE PROCEDURE IN AM AND UNDERSTANDS THE PRE- OP AND NPO STATUS POST [place]. NWB STATUS ON RLE WAS REMINDED TO THE PT WITH UNDERSTANDING. NEEDS ATTENDED. BED LO LOCKED. CALL LIGHT WITHIN REACH, WILL CONT TO MONITOR ,
[2018-07-04 20:00] VITALS: BP 122/55
[2018-07-04] MEDS: ENOXAPARIN SODIUM 40 MG/0.4 ML DISP.SYRIN SQ SCH (21:00)
[2018-07-04] MEDS: ZOLPIDEM TARTRATE 10 MG TABLET PO PRN (21:09)
--- NOTE | 2018-07-04 21:10 | NUR ---
HELD LOVENOX FOR SX IN AM. DR STAUFFER MADE AWARE.
--- NOTE | 2018-07-04 21:11 | NUR ---
AMBIEN GIVEN ORDERED PER PT'S REQUEST FOR C/O INABILITY TO SLEEP ALSO DILAUDID GIVEN FOR C/O R FOOT PAIN. PT'S BP AND O2 SAT REMAINED STABLE AT THIS TIME. ALSO WITH FSBS:177. INSULIN AND SNACKS GIVEN . WILL CONT TO MONITOR.
--- NOTE | 2018-07-05 00:20 | NUR ---
pt refused Phenergan syrup.
[2018-07-05] MEDS: PROMETHAZINE HCL SYRUP 6.25 MG/5 ML UDC PO SCH ×5 (05:30→17:33)
--- NOTE | 2018-07-05 06:36 | NUR ---
PT IN BED AWAKE AND ALERT. BREATHING EVENLY. NO SOB. NO ACUTE EVENT DURING THE NIGHT. REFUSED IVF HYDRATION THE WHOLE SHIFT. PAIN CONTROLLED BY PAIN MEDICATIONS. L SHOULDER SLING ON AT ALL TIME. NPO FOR SX TODAY. NEEDS ATTENDED. ASSISTED W/ ADLS. BED LOW LOCKED. CALL LIGHT WITHIN REACH. WILL CONT TO MONITOR AND WILL ENDORSE TO AM SHIFT FOR DEJAH. Addendum: 07/05/18 at 0638 by RONDA NAYLOR RN WRONG PT DOCUMENTATION.
--- NOTE | 2018-07-05 06:39 | NUR ---
PT IN BED AWAKE AND ALERT. BREATHING EVENLY. NO SOB. NO ACUTE EVENT DURING THE NIGHT.PAIN CONTROLLED BY PAIN MEDICATIONS. DRESSING ON R FOOT C/D/T. NPO FOR SX TODAY W/ NO S/S OF HYPO OR HYPERGLYCEMIA. NEEDS ATTENDED. ASSISTED W/ ADLS. BED LOW LOCKED. CALL LIGHT WITHIN REACH. WILL CONT TO MONITOR AND WILL ENDORSE TO AM SHIFT FOR DEJAH.
[2018-07-05 07:41] LABS: BASOPHILS % (AUTO) 0.6 % (0.0-2.0); EOSINOPHILS % (AUTO) 2.2 % (0.0-6.0); HEMATOCRIT 22 % (39-51); HEMOGLOBIN 7.3 g/dL (13.5-17.5); LYMPHOCYTES # (AUTO) 3.1 /CMM (0.8-4.8); MEAN CORPUSCULAR HGB CONC 33 g/dl (31.0-36.0); MEAN CORPUSCULAR VOLUME 73 fL (80-96); MONOCYTES # (AUTO) 0.5 /CMM (0.1-1.30); MONOCYTES % (AUTO) 6.3 % (2.0-12.0); NEUTROPHILS # (AUTO) 4.1 /CMM (1.8-8.9); NEUTROPHILS % (AUTO) 51.9 % (43.0-81.0); PLATELET COUNT (AUTO) 329 /CMM (150-450); RED BLOOD CELL COUNT(AUTO) 3.07 MIL/uL (4.5-6.0)
[2018-07-05 08:00] VITALS: BP 144/67
[2018-07-05 08:00] LABS: CALCIUM, SERUM 8.9 mg/dL (8.5-10.1); CREATININE 1.4 mg/dL (0.6-1.3); MAGNESIUM 1.8 mg/dL (1.8-2.4); PHOSPHORUS 3.7 mg/dL (2.5-4.9); POTASSIUM 4.8 mmol/L (3.5-5.1)
[2018-07-05] MEDS: GLUCERNA SHAKE 237 ML CAN PO SCH ×3 (08:00→17:31)
[2018-07-05] MEDS: BLOOD SUGAR DIAGNOSTIC 1 EACH STRIP IN SCH ×4 (08:31→22:09)
[2018-07-05] MEDS: CARVEDILOL 12.5 MG TABLET PO SCH ×2 (08:32→16:49)
[2018-07-05] MEDS: MYCOPHENOLATE MOFETIL 250 MG CAPSULE PO SCH ×2 (08:32→21:33)
[2018-07-05] MEDS: CLOPIDOGREL BISULFATE 75 MG TABLET PO SCH (08:33)
[2018-07-05] MEDS: AMLODIPINE BESYLATE 10 MG TABLET PO SCH (08:33)
[2018-07-05] MEDS: LISINOPRIL (10MG) 10 MG TABLET PO SCH (08:33)
[2018-07-05] MEDS: predniSONE 5 MG TABLET PO SCH (08:33)
[2018-07-05] MEDS: GABAPENTIN 300 MG CAPSULE PO SCH ×3 (08:33→16:49)
[2018-07-05] MEDS: CARISOPRODOL 350 MG TABLET PO SCH ×2 (08:34→16:49)
[2018-07-05] MEDS: TACROLIMUS ANHYDROUS 1 MG CAPSULE PO SCH ×2 (08:34→21:33)
[2018-07-05] MEDS: SIMVASTATIN 10 MG TABLET PO SCH (08:34)
[2018-07-05] MEDS: LINEZOLID 600 MG TABLET PO SCH ×2 (08:34→22:08)
[2018-07-05] MEDS: DAKINS HALF STRENGTH (0.25%) 480 ML BOTTLE TOP SCH (08:35)
--- NOTE | 2018-07-05 11:40 | NUR ---
PATIENT TAKEN TO OPERATION ROOM. DID NOT PERFORM ACCU CHECK DUE TO PATIENT BEING IN OPERATION ROOM.
[2018-07-05] MEDS ORDERED: MIDAZOLAM HCL 2 MG/2ML VIAL ONE (11:51)
[2018-07-05] MEDS ORDERED: FENTANYL PF 100MCG/2ML AMPUL ONE (11:52)
[2018-07-05] MEDS ORDERED: FAMOTIDINE/PF INJ 20 MG/2 ML VIAL IV ONE (11:52)
[2018-07-05] MEDS ORDERED: METOCLOPRAMIDE HCL 10 MG/2 ML VIAL ONE (11:52)
[2018-07-05] MEDS ORDERED: EPOETIN ALFA (40,000 UNIT) 40,000 UNIT/ML VIAL SQ ONE (12:00)
[2018-07-05] MEDS ORDERED: BUPIVACAINE 0.5 % PF 150 MG/30 ML VIAL ONE (12:00)
[2018-07-05] MEDS ORDERED: EPOETIN ALFA (20,000 UNIT) 20,000 UNIT/ML VIAL IV ONE (12:30)
[2018-07-05] MEDS ORDERED: BUPIVACAINE MPF 0.5% W/EPI INJ 30 ML VIAL ONE (12:48)
[2018-07-05 14:04] LABS: BASOPHILS % (AUTO) 0.5 % (0.0-2.0); EOSINOPHILS % (AUTO) 1.2 % (0.0-6.0); LYMPHOCYTES # (AUTO) 2.8 /CMM (0.8-4.8); MEAN CORPUSCULAR HGB CONC 33 g/dl (31.0-36.0); MEAN CORPUSCULAR VOLUME 74 fL (80-96); MONOCYTES # (AUTO) 0.4 /CMM (0.1-1.30); MONOCYTES % (AUTO) 5.5 % (2.0-12.0); NEUTROPHILS % (AUTO) 54.8 % (43.0-81.0); PLATELET COUNT (AUTO) 312 /CMM (150-450); WHITE BLOOD COUNT (AUTO) 7.2 K/uL (4.3-11.0)
[2018-07-05 14:11] LABS: HEMATOCRIT 21 % (39-51); HEMOGLOBIN 6.8 g/dL (13.5-17.5)
[2018-07-05] MEDS: LEVOFLOXACIN (750 MG) 750 MG TABLET PO SCH (15:52)
[2018-07-05 16:00] VITALS: BP 121/68
[2018-07-05] MEDS: SOD FERRIC GLUC 125 MG in IV NS 0.9% 100 ML IV SCH (16:39)
[2018-07-05] MEDS: HYDROMORPHONE 1 MG/1 ML DISP.SYRIN IV PRN ×2 (17:29→21:34)
[2018-07-05] MEDS ORDERED: CELLULOSE,OXIDIZED 1 EA PACK MC ONE (17:30)
[2018-07-05 18:34] VITALS: BP 103/45
[2018-07-05 18:49] VITALS: BP 105/51
--- NOTE | 2018-07-05 19:15 | NUR ---
MS RN OPENING NOTE RECEIVED PT IN BED, AWAKE, ALERT AND ORIENTED X 3, VERBALLY RESPONSIVE. PT CURRENTLY RECEIVING BLOOD TRANSFUSION, NOTED WITH STABLE VITAL SIGNS, NO S/S OF INFUSION REACTION, AFEBRILE. ALL PATIENT'S NEEDS ATTENDED TO AT THIS TIME. NOTED PT'S RIGHT FOOT DRESSING WITH STRIKE THROUGH, DRESSING REINFORCED. PLACED CALL LIGHT WITHIN EASY REACH. WILL CONTINUE TO MONITOR PT. BED IN LOW POSITION AND LOCKED IN PLACE.
[2018-07-05 20:00] VITALS: BP 113/50
[2018-07-05] MEDS: ENOXAPARIN SODIUM 40 MG/0.4 ML DISP.SYRIN SQ SCH (21:00)
[2018-07-05 21:31] VITALS: BP 122/67
--- NOTE | 2018-07-05 21:31 | NUR ---
RN NOTE 1 PRBC TRANSFUSED, NO NOTED ADVERSE REACTION, PT REMAINS AFEBRILE, WITH STABLE VITAL SIGNS, ALERT AND ORIENTED X 4, VERBALLY RESPONSIVE AND IN NO ACUTE DISTRESS. WILL CONTINUE TO MONITOR PT.
[2018-07-05] MEDS ORDERED: LINEZOLID 600 MG TABLET ONE (22:03)
[2018-07-05] MEDS: ZOLPIDEM TARTRATE 10 MG TABLET PO PRN (22:09)
[2018-07-05] MEDS: INSULIN REGULAR, HUMAN 100 UNIT/ML 3 ML VIAL SQ PRN (22:21)
[2018-07-06] VITALS (7 sets, daily range): BP systolic 114–160; BP diastolic 34–51
[2018-07-06] MEDS: ONDANSETRON HCL/PF 4 MG/2 ML VIAL IVP PRN (00:39)
[2018-07-06] MEDS: HYDROMORPHONE 1 MG/1 ML DISP.SYRIN IV PRN ×4 (01:30→21:45)
--- NOTE | 2018-07-06 05:55 | NUR ---
RN NOTE CHANGED PT'S PICC LINE DRESSING UNDER ASEPTIC TECHNIQUE. NOTED WITH NO S/S OF INFECTION ON SITE, NO REDNESS, NO SWELLING. PT TOLERATED PROCEDURE WELL. ARM CIRCUMFERENCE 28 CM AND EXTERNAL PORTION OF PICC LINE MEASURING 1CM. WILL CONTINUE TO MONITOR.
[2018-07-06] MEDS: PROMETHAZINE HCL SYRUP 6.25 MG/5 ML UDC PO SCH ×4 (06:00→17:18)
[2018-07-06 06:34] LABS: BASOPHILS % (AUTO) 0.5 % (0.0-2.0); EOSINOPHILS % (AUTO) 2.6 % (0.0-6.0); LYMPHOCYTES % (AUTO) 46.1 % (20.0-44.0); MEAN CORPUSCULAR HGB CONC 33 g/dl (31.0-36.0); MEAN CORPUSCULAR VOLUME 75 fL (80-96); MONOCYTES # (AUTO) 0.4 /CMM (0.1-1.30); MONOCYTES % (AUTO) 6.6 % (2.0-12.0); NEUTROPHILS # (AUTO) 2.9 /CMM (1.8-8.9); NEUTROPHILS % (AUTO) 44.2 % (43.0-81.0); PLATELET COUNT (AUTO) 235 /CMM (150-450); RED BLOOD CELL COUNT(AUTO) 2.31 MIL/uL (4.5-6.0); WHITE BLOOD COUNT (AUTO) 6.6 K/uL (4.3-11.0)
[2018-07-06 06:40] LABS: HEMATOCRIT 17 % (39-51); HEMOGLOBIN 5.8 g/dL (13.5-17.5)
--- NOTE | 2018-07-06 06:40 | NUR ---
RN NOTE IGNACIO JANETTE CALL FROM LAB WITH CRITICAL VALUE H/H LOW AT 5.8/17. PAGED EPI ON ACLL. WAITING FOR CALL BACK.
[2018-07-06 06:43] LABS: CREATININE 1.1 mg/dL (0.6-1.3); MAGNESIUM 1.8 mg/dL (1.8-2.4); PHOSPHORUS 3.6 mg/dL (2.5-4.9); POTASSIUM 4.7 mmol/L (3.5-5.1)
--- NOTE | 2018-07-06 06:47 | NUR ---
RN NOTE RECEIVED VALL BACK FROM DR. STAUFFER WITH NEW ORDER TO TRANSFUSE 1PRBC. ALL ORDERS NOTED AND CARRIED OUT. CALLED BLOOD BANK, RECEIVED ORDER AND WILL CALL WHEN BLOOD IS READY FOR DATABASE SECURITY ADMINISTRATOR. WILL ENDORSE TO AM SHIFT NURSE FOR CONTINUITY OF CARE. PATIENT IN STABLE CONDITION, ALL NEEDS ATTENDED TO AT THIS TIME. AGREES WITH PLAN OF CARE.
[2018-07-06 07:04] LABS: LYMPHOCYTES % (MANUAL) 48 % (16-48); MONOCYTES % (MANUAL) 9 % (0-11.0); NEUTROPHILS % (MANUAL) 43 (42-76)
--- NOTE | 2018-07-06 07:16 | NUR ---
RN NOTE DR. AVILEZ AT BEDSIDE. SEEN AND CHANGED WOUND DRESSING ON PT'S RIGHT FOOT. PER MD WOUND DRESSING WILL BE DONE THE FOLLOWING DAY BY MD. WILL ENDORSE TO AM [facility] NURSE.
[2018-07-06] MEDS: BLOOD SUGAR DIAGNOSTIC 1 EACH STRIP IN SCH ×4 (07:37→21:52)
--- NOTE | 2018-07-06 07:45 | NUR ---
RN OPENING NOTE RECEIVED PT. PT STABLE AND RESTING IN BED. PT HAS C/O SOB, O2 VIA NC PLACED AT 2L O2. O2 SAT WNL. PT HAS C/O PAIN IN RIGHT FOOT. RIGHT FOOT SX DRESSING NOTED, PLACED DUE TO PT IS S/P R FOOT PARTIAL AMPUTATION. PAIN IS 5/10 BUT PT REPORTS THE PAIN TOLERABLE. RFA 20G AND OSMAN PICC LINE NOTED. CURRENTLY SL. PT MORNING H/H FOUND HGB OF 5.8. WILL BEGIN BLOOD TRANSFUSION PER ORDER. SAFETY MEASURES IN PLACE,C ALL LIGHT WITHIN REACH. WILL CONTINUE TO MONITOR.
[2018-07-06] MEDS: GLUCERNA SHAKE 237 ML CAN PO SCH ×3 (08:00→17:10)
--- NOTE | 2018-07-06 08:40 | NUR ---
RN NOTE BLOOD TRANSFUSION STARTED. VSS PER PT TREND. WILL CONTINUE TO MONITOR FOR ADVERSE TRANSFUSION REACTION.
[2018-07-06] MEDS: CARVEDILOL 12.5 MG TABLET PO SCH ×2 (09:00→17:00)
[2018-07-06] MEDS: AMLODIPINE BESYLATE 10 MG TABLET PO SCH (09:00)
[2018-07-06] MEDS: DAKINS HALF STRENGTH (0.25%) 480 ML BOTTLE TOP SCH (09:00)
[2018-07-06] MEDS: LISINOPRIL (10MG) 10 MG TABLET PO SCH (09:00)
[2018-07-06] MEDS: CLOPIDOGREL BISULFATE 75 MG TABLET PO SCH (09:00)
[2018-07-06] MEDS: predniSONE 5 MG TABLET PO SCH (09:27)
[2018-07-06] MEDS: GABAPENTIN 300 MG CAPSULE PO SCH ×3 (09:27→17:10)
[2018-07-06] MEDS: TACROLIMUS ANHYDROUS 1 MG CAPSULE PO SCH ×2 (09:27→21:44)
[2018-07-06] MEDS: CARISOPRODOL 350 MG TABLET PO SCH ×2 (09:27→17:11)
[2018-07-06] MEDS: MYCOPHENOLATE MOFETIL 250 MG CAPSULE PO SCH ×2 (09:28→21:43)
[2018-07-06] MEDS: SIMVASTATIN 10 MG TABLET PO SCH (09:29)
[2018-07-06] MEDS: LINEZOLID 600 MG TABLET PO SCH ×2 (09:31→21:44)
[2018-07-06] MEDS: LEVOFLOXACIN (750 MG) 750 MG TABLET PO SCH (12:22)
[2018-07-06 12:35] LABS: BASOPHILS # (AUTO) 0.1 /CMM (0.0-0.2); EOSINOPHILS % (AUTO) 2.1 % (0.0-6.0); HEMATOCRIT 26 % (39-51); HEMOGLOBIN 8.6 g/dL (13.5-17.5); LYMPHOCYTES % (AUTO) 29.2 % (20.0-44.0); MEAN CORPUSCULAR HGB CONC 33 g/dl (31.0-36.0); MEAN CORPUSCULAR VOLUME 83 fL (80-96); MONOCYTES # (AUTO) 0.3 /CMM (0.1-1.30); MONOCYTES % (AUTO) 4.9 % (2.0-12.0); NEUTROPHILS # (AUTO) 4.3 /CMM (1.8-8.9); NEUTROPHILS % (AUTO) 62.8 % (43.0-81.0); PLATELET COUNT (AUTO) 173 /CMM (150-450); RED BLOOD CELL COUNT(AUTO) 3.14 MIL/uL (4.5-6.0); WHITE BLOOD COUNT (AUTO) 6.8 K/uL (4.3-11.0)
[2018-07-06] MEDS: INSULIN REGULAR, HUMAN 100 UNIT/ML 3 ML VIAL SQ PRN ×3 (12:53→21:53)
[2018-07-06] MEDS: SOD FERRIC GLUC 125 MG in IV NS 0.9% 100 ML IV SCH (14:00)
--- NOTE | 2018-07-06 18:33 | NUR ---
RN CLOSING NOTE PT IN BED RESTING. NO S/S OF RESP DISTRESS OR SOB. NO C/O PAIN AT THIS TIME. PER LAB RESULTS, HGB TREND UP NOW >8. PT INSTRUCTED TO KEEP RLE ELEVATED TO AVOID BLEEDING FROM SURGICAL DRESSING ON RIGHT FOOT. PER MD ARCEO NOTE, OK TO GIVE 1 UNIT PRBC IF HGB IS UNDER 6.5. ALL PT NEEDS ANTICIPATED AND MET. SAFETY MEASURES IN PLACE, CALL LIGHT WITHIN REACH. WILL ENDORSE TO LIVESTOCK RANCHER FOR DEJAH.
--- NOTE | 2018-07-06 19:19 | NUR ---
MS RN NOTES RECEIVE PT IN BED A/O X 3, IN STABLE CONDITION, NOT IN DISTRESS, SAFETY MEASURES IN PLACE. WILL CONTINUE TO MONITOR.
[2018-07-06] MEDS: ENOXAPARIN SODIUM 40 MG/0.4 ML DISP.SYRIN SQ SCH (21:00)
[2018-07-06] MEDS: ZOLPIDEM TARTRATE 10 MG TABLET PO PRN (21:44)
--- NOTE | 2018-07-06 21:45 | NUR ---
MS SOSA NOTES REFUSED LOVENOX NON ADMIN DESPITE EXPLAINING RISKS AND BENEFITS. H/H IS ALSO LOW. HOLD. HOSPITALIST AWARE. Addendum: 07/07/18 at 0023 by KHANG LUKE RN PATIENT REFUSED LOVENOX
[2018-07-07] VITALS (13 sets, daily range): BP systolic 92–148; BP diastolic 41–62
--- NOTE | 2018-07-07 00:10 | NUR ---
PATIENT REFUSED PHENARGAN MED DESPITE EXPLAINING RISKS AND BENEFITS OFFERED 3 TIMES STILL REFUSED MEDICINE PT A/O X 4. PER PT IT MAKES HIS THROAT SORE. Addendum: 07/07/18 at 0027 by KHANG LUKE RN cORRECTION OF SPELLING PHENERGAN SYRUP
[2018-07-07] MEDS: PROMETHAZINE HCL SYRUP 6.25 MG/5 ML UDC PO SCH ×5 (05:11→23:42)
--- NOTE | 2018-07-07 05:11 | NUR ---
PATIENT STILL REFUSING PHENERGAN MED SYRUP DESPITE EXPLAINING RISKS AND BENEFITS OFFERED 3 TIMES STILL REFUSED MED PT A/O X 4.
[2018-07-07] MEDS: BLOOD SUGAR DIAGNOSTIC 1 EACH STRIP IN SCH ×4 (05:47→21:32)
[2018-07-07] MEDS: INSULIN REGULAR, HUMAN 100 UNIT/ML 3 ML VIAL SQ PRN ×4 (05:54→21:33)
--- NOTE | 2018-07-07 06:14 | NUR ---
MS RN CLOSING NOTE AWAKE WATCHING TV AND EATING SANDWICH. NO S/S OF DISTRESS, KEPT RLE ELEVATED TO AVOID BLEEDING FROM SURGICAL DRESSING ON RIGHT FOOT AND NO S/S OF BLEEDING NOTED. NEEDS ATTENDED AND ANTICIPATED, KEPT CLEAN AND DRY AND COMFORT. PAIN MEDICATED WITH PAIN MEDICATION TOLERATED WELL. NO COMPLAIN AT THIS TIME. WILL ENDORSE NEXT SHIFT.
--- NOTE | 2018-07-07 07:10 | NUR ---
RN OPENING NOTES RECEIVED PATIENT IN BED RESTING. AWAKE AND RESPONSIVE. A/O X3, ABLE TO MAKE NEEDS KNOWN. NO ACUTE DISTRESS, NO SOB. DENIED PAIN OR DISCOMFORT AT THIS TIME. IV ACCESS INTACT AND PATENT. RLE ELEVATED, DRESSING C/D/I. KEPT PATIENT SAFE AND COMFORTABLE. KEPT IN LOW/LOCKED POSITION, SIDERAILS UPX2, CALL LIGHT IN REACH, SEMIFOWLERS, WILL CONTINUE TO MONIOTR ACCORDINGLY.
[2018-07-07] MEDS: DAKINS HALF STRENGTH (0.25%) 480 ML BOTTLE TOP SCH (09:00)
[2018-07-07] MEDS: CLOPIDOGREL BISULFATE 75 MG TABLET PO SCH (09:00)
[2018-07-07] MEDS: TACROLIMUS ANHYDROUS 1 MG CAPSULE PO SCH ×2 (09:24→20:25)
[2018-07-07] MEDS: SIMVASTATIN 10 MG TABLET PO SCH (09:24)
[2018-07-07] MEDS: CARISOPRODOL 350 MG TABLET PO SCH ×2 (09:24→17:45)
[2018-07-07] MEDS: GABAPENTIN 300 MG CAPSULE PO SCH ×3 (09:24→17:45)
[2018-07-07] MEDS: LISINOPRIL (10MG) 10 MG TABLET PO SCH (09:27)
[2018-07-07] MEDS: AMLODIPINE BESYLATE 10 MG TABLET PO SCH (09:27)
[2018-07-07] MEDS: LINEZOLID 600 MG TABLET PO SCH ×2 (09:27→20:25)
[2018-07-07] MEDS: CARVEDILOL 12.5 MG TABLET PO SCH ×2 (09:27→17:00)
[2018-07-07] MEDS: MYCOPHENOLATE MOFETIL 250 MG CAPSULE PO SCH ×2 (09:28→20:25)
[2018-07-07] MEDS: predniSONE 5 MG TABLET PO SCH (09:28)
[2018-07-07] MEDS: HYDROMORPHONE 1 MG/1 ML DISP.SYRIN IV PRN ×3 (09:52→20:26)
--- NOTE | 2018-07-07 10:00 | NUR ---
DR HERNANDEZ ON BEDSIDE CHANGING PATIENT'S RLE DRESSING
[2018-07-07] MEDS: GLUCERNA SHAKE 237 ML CAN PO SCH ×3 (10:03→17:56)
[2018-07-07] MEDS: LEVOFLOXACIN (750 MG) 750 MG TABLET PO SCH (12:49)
[2018-07-07 12:50] LABS: BASOPHILS % (AUTO) 0.2 % (0.0-2.0); EOSINOPHILS % (AUTO) 0.3 % (0.0-6.0); LYMPHOCYTES # (AUTO) 2.9 /CMM (0.8-4.8); LYMPHOCYTES % (AUTO) 27.3 % (20.0-44.0); MEAN CORPUSCULAR HGB CONC 33 g/dl (31.0-36.0); MEAN CORPUSCULAR VOLUME 77 fL (80-96); MONOCYTES # (AUTO) 0.4 /CMM (0.1-1.30); MONOCYTES % (AUTO) 3.7 % (2.0-12.0); NEUTROPHILS # (AUTO) 7.3 /CMM (1.8-8.9); NEUTROPHILS % (AUTO) 68.5 % (43.0-81.0); PLATELET COUNT (AUTO) 202 /CMM (150-450); RED BLOOD CELL COUNT(AUTO) 2.38 MIL/uL (4.5-6.0); WHITE BLOOD COUNT (AUTO) 10.6 K/uL (4.3-11.0)
[2018-07-07 12:56] LABS: HEMATOCRIT 18 % (39-51); HEMOGLOBIN 6.1 g/dL (13.5-17.5)
[2018-07-07] MEDS: ONDANSETRON HCL/PF 4 MG/2 ML VIAL IVP PRN (12:56)
[2018-07-07 12:59] LABS: CALCIUM, SERUM 8.2 mg/dL (8.5-10.1); CREATININE 1.2 mg/dL (0.6-1.3); POTASSIUM 4.8 mmol/L (3.5-5.1)
[2018-07-07] MEDS: HYDROCODONE/APAP 5/325MG 1 EACH TABLET PO PRN (12:59)
[2018-07-07] MEDS: IV NS 0.9% 1,000 ML IV PRN (14:06)
[2018-07-07 15:46] LABS: LYMPHOCYTES % (MANUAL) 26 % (16-48); MONOCYTES % (MANUAL) 3 % (0-11.0); NEUTROPHILS % (MANUAL) 71 (42-76)
--- NOTE | 2018-07-07 16:20 | NUR ---
TRANSFUSING 1UNIT PRBC. PATIENT IN STABLE CONDITION. WILL MONIOTR ACCORDINGLY.
--- NOTE | 2018-07-07 17:58 | NUR ---
BS 240, GAVE 4 UNITS INSULIN ORDERED
--- NOTE | 2018-07-07 18:00 | NUR ---
ONGOING BLOOD TRANSFUSION. NO ADVERSE REACTION. VSS. PATIENT ALERT, AWAKE, TOLERATING WELL. WILL MONIOTR ACCORDINGLY.
--- NOTE | 2018-07-07 19:00 | NUR ---
MS RN NOTES RECEIVE PT IN BED EATING A/O X 3, IN STABLE CONDITION, NOT IN DISTRESS, SAFETY MEASURES IN PLACE. WILL CONTINUE TO MONITOR.
--- NOTE | 2018-07-07 19:15 | NUR ---
RN CLOSING NOTES BLOOD TRANSFUSION JUST ENDED. NO ADVERSE REACTION, PATIENT TOLERATED WELL. PATIENT IN STABLE CONDITION. ALL NEEDS ATTENDED AND PROVIDED. ALL DUE MEDICATIONS GIVEN ORDERED. KEPT PATIENT SAFE AND COMFORTABLE. BED IN LOW/LOCKED POSITION. RLE ELEVATED, DRESSING C/D/I. SIDERAILS UP, CALL LIGHT IN REACH. ENDORSED TO NIGHT RN FOR DEJAH.
[2018-07-07] MEDS: ZOLPIDEM TARTRATE 10 MG TABLET PO PRN (20:25)
[2018-07-07 21:18] LABS: HEMOGLOBIN 6.7 g/dL (13.5-17.5)
--- NOTE | 2018-07-07 21:52 | NUR ---
PAGED DR. KOCH SPOKE TO HIM RELAYED RECENT H/H PER DR. KOCH TRANSFUSE 1 MORE PRBC READ BACK AND VERIFIED ORDERS NOTED AND CARRIED OUT
--- NOTE | 2018-07-07 23:43 | NUR ---
PATIENT REFUSING PHENERGAN MED SYRUP DESPITE EXPLAINING RISKS AND BENEFITS OFFERED 3 TIMES STILL REFUSED MED PT A/O X 4.
[2018-07-08 00:20] VITALS: BP 99/48
[2018-07-08 01:20] VITALS: BP 101/62
[2018-07-08 01:45] VITALS: BP 123/63
--- NOTE | 2018-07-08 01:45 | NUR ---
PT RECEIVE 1 PRBC BLOOD TRANSFUSION END. NO ADVERSE REACTION, PATIENT TOLERATED WELL. VS STABLE. TOLERATING ROOM AIR 99%
[2018-07-08] MEDS: PROMETHAZINE HCL SYRUP 6.25 MG/5 ML UDC PO SCH ×4 (05:27→17:01)
--- NOTE | 2018-07-08 05:27 | NUR ---
PATIENT STILL REFUSING PHENERGAN MED SYRUP DESPITE EXPLAINING RISKS AND BENEFITS OFFERED 3 TIMES STILL REFUSED MED PT A/O X 4.
[2018-07-08] MEDS: BLOOD SUGAR DIAGNOSTIC 1 EACH STRIP IN SCH ×4 (05:58→21:14)
[2018-07-08] MEDS: INSULIN REGULAR, HUMAN 100 UNIT/ML 3 ML VIAL SQ PRN ×4 (05:59→21:22)
--- NOTE | 2018-07-08 06:13 | NUR ---
MS RN CLOSING NOTES PT AWAKE IN BED, TOLERATING ROOM AIR 99%. NO ACTIVE BLEEDING. KEPT RLE ELEVATED DRESSING INTACT WITH NO S/S OF BLEEDING. AM/PM CARE RENDERED. PAIN MANAGE WITH PAIN MEDICATION TOLERATED WELL. KEPT CLEAN AND DRY AND COMFORTABLE, OFFLOAD HEEL AND ELBOWS. WILL ENDORSE NEXT SHIFT CONTINUITY OF CARE
[2018-07-08 06:46] LABS: BASOPHILS % (AUTO) 0.1 % (0.0-2.0); EOSINOPHILS % (AUTO) 1.6 % (0.0-6.0); HEMATOCRIT 21 % (39-51); HEMOGLOBIN 7.1 g/dL (13.5-17.5); LYMPHOCYTES % (AUTO) 34.3 % (20.0-44.0); MEAN CORPUSCULAR HGB CONC 34 g/dl (31.0-36.0); MEAN CORPUSCULAR VOLUME 80 fL (80-96); MONOCYTES # (AUTO) 0.3 /CMM (0.1-1.30); MONOCYTES % (AUTO) 3.1 % (2.0-12.0); NEUTROPHILS # (AUTO) 5.4 /CMM (1.8-8.9); NEUTROPHILS % (AUTO) 60.9 % (43.0-81.0); PLATELET COUNT (AUTO) 162 /CMM (150-450); RED BLOOD CELL COUNT(AUTO) 2.61 MIL/uL (4.5-6.0); WHITE BLOOD COUNT (AUTO) 8.8 K/uL (4.3-11.0)
[2018-07-08 06:58] LABS: CALCIUM, SERUM 8.6 mg/dL (8.5-10.1); CREATININE 1.1 mg/dL (0.6-1.3)
[2018-07-08 08:00] VITALS: BP 146/80
--- NOTE | 2018-07-08 08:18 | NUR ---
MS RN NOTES RECEIVED PATIENT ASLEEP IN BED. NO DISTRESS NOTED. CALL LIGHT WITHIN REACH. PICC LINE INTACT/PATENT. PERIPHERAL LINE INTACT/PATENT. NO C/O PAIN OR DISCOMFORT. BED AT LOW LOCK SETTING. ALL BELONGINGS KEPT NEAR BEDSIDE. WILL CONTINUE TO MONITOR.
[2018-07-08] MEDS: SIMVASTATIN 10 MG TABLET PO SCH (08:49)
[2018-07-08] MEDS: GABAPENTIN 300 MG CAPSULE PO SCH ×3 (08:50→16:54)
[2018-07-08] MEDS: CARISOPRODOL 350 MG TABLET PO SCH ×2 (08:50→16:54)
[2018-07-08] MEDS: CLOPIDOGREL BISULFATE 75 MG TABLET PO SCH (08:50)
[2018-07-08] MEDS: MYCOPHENOLATE MOFETIL 250 MG CAPSULE PO SCH ×2 (08:50→20:25)
[2018-07-08] MEDS: predniSONE 5 MG TABLET PO SCH (08:50)
[2018-07-08] MEDS: TACROLIMUS ANHYDROUS 1 MG CAPSULE PO SCH ×2 (08:50→20:25)
[2018-07-08] MEDS: LISINOPRIL (10MG) 10 MG TABLET PO SCH ×2 (08:51→09:00)
[2018-07-08] MEDS: AMLODIPINE BESYLATE 10 MG TABLET PO SCH ×2 (08:51→09:00)
[2018-07-08] MEDS: CARVEDILOL 12.5 MG TABLET PO SCH ×3 (08:51→16:57)
[2018-07-08] MEDS: DAKINS HALF STRENGTH (0.25%) 480 ML BOTTLE TOP SCH (08:54)
[2018-07-08] MEDS: LINEZOLID 600 MG TABLET PO SCH ×2 (08:58→20:25)
[2018-07-08] MEDS: GLUCERNA SHAKE 237 ML CAN PO SCH ×3 (08:58→16:59)
[2018-07-08] MEDS: HYDROMORPHONE 1 MG/1 ML DISP.SYRIN IV PRN ×3 (09:57→20:33)
[2018-07-08] MEDS: LEVOFLOXACIN (750 MG) 750 MG TABLET PO SCH (12:02)
[2018-07-08] MEDS: IV NS 0.9% 1,000 ML IV PRN (14:20)
[2018-07-08] MEDS: ONDANSETRON HCL/PF 4 MG/2 ML VIAL IVP PRN (15:27)
[2018-07-08 16:00] VITALS: BP 143/67
[2018-07-08] MEDS: HYDROCODONE/APAP 5/325MG 1 EACH TABLET PO PRN (17:05)
[2018-07-08] MEDS ORDERED: TACROLIMUS ANHYDROUS 1 MG CAPSULE PO SCH (18:00)
--- NOTE | 2018-07-08 18:06 | NUR ---
MS RN CLOSING NOTES PATIENT AWAKE IN BED AND WATCHING TV WITH NO DISTRESS NOTED. CALL LIGHT WITHIN REACH. NO C/O PAIN OR DISCOMFORT. PICC LINE AND PERIPHERAL IV INTACT AND PATENT. ALL DUE MEDS GIVEN ORDERED WITH NO ASE NOTED. BED IN LOW LOCK SETTING. ALL BELONGINGS KEPT NEAR BEDSIDE. WILL ENDORSE TO ONCOMING SHIFT.
[2018-07-08 18:53] LABS: HEMOGLOBIN 7.1 g/dL (13.5-17.5)
--- NOTE | 2018-07-08 19:15 | NUR ---
MS SOSA OPENING NOTES: RECEIVED PT ON ROOM AIR AND IS TOLERATING WELL. PT RESTING IN BED COMFORTABLY AT THIS TIME AND IS SPEAKING ON THE PHONE. PT IS A/OX4. PT HAS IV AND IS BEING INFUSED WITH IV NS AT 60ML/HR. NO SOB NOTED. NO S/S OF DISTRESS. BED KEPT NI LOW, LOCKED POSITION, AND SIDE RAILS X 2UP. WILL CONTINUE TO MONITOR PT. 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 PT NOT UNDERGOING DIALYSIS AT THIS TIME.
[2018-07-08 20:00] VITALS: BP 113/45
[2018-07-08] MEDS: MAG HYDROX/AL HYDROX/SIMETH 30 ML UDC PO PRN (20:26)
--- NOTE | 2018-07-08 20:30 | NUR ---
MS RN NOTES: PT COMPLAINING OF STOMACH ACID. PT WAS ADMINISTERED MAALOX. WILL CONTINUE TO MONITOR PT.
--- NOTE | 2018-07-08 20:45 | NUR ---
MS RN NOTES: PT COMPLAINING OF 10/10 R FOOT PAIN. PT WAS ADMINISTERED DILAUDID 2MG VIA IV. R FOOT DRESSING INTACT AND KEPT CLEAN AND DRY. WILL CONTINUE TO MONITOR PT.
[2018-07-08] MEDS: ZOLPIDEM TARTRATE 10 MG TABLET PO PRN (21:14)
--- NOTE | 2018-07-08 21:15 | NUR ---
MS RN NOTES: PT REQUESTING FOR SLEEPING AID. PT WAS ADMINISTERED AMBIEN 10MG PO. WILL CONTINUE TO ASSESS.
--- NOTE | 2018-07-08 21:26 | NUR ---
MS RN NOTES: BLOOD SUGAR THIS EVENING WAS 211. 4 UNITS OF INSULIN WAS ADMINISTERED. SNACKS AT BEDSIDE. WILL CONTINUE TO MONITOR PT.
--- NOTE | 2018-07-09 00:08 | NUR ---
MS RN NOTES: PT NO LONGER WANTS PHENERGAN. EXPLAINED TO PT X3. PT STILL DOES NOT WANT IT. DOES NOT WANT AM DOSE WELL. HE NO LONGER HAS A COUGH.
[2018-07-09] MEDS: PROMETHAZINE HCL SYRUP 6.25 MG/5 ML UDC PO SCH ×5 (06:00→23:08)
--- NOTE | 2018-07-09 06:05 | NUR ---
MS RN NOTES: PT NO LONGER WANTS PHENERGAN 0600 AM DOSE. EXPLAINED TO PT X3. PT STILL DOES NOT WANT IT. DOES NOT WANT AM DOSE WELL. HE NO LONGER HAS A COUGH.
[2018-07-09] MEDS: BLOOD SUGAR DIAGNOSTIC 1 EACH STRIP IN SCH ×4 (06:18→21:27)
[2018-07-09] MEDS: INSULIN REGULAR, HUMAN 100 UNIT/ML 3 ML VIAL SQ PRN ×4 (06:18→21:30)
[2018-07-09] MEDS: IV NS 0.9% 1,000 ML IV PRN ×2 (06:35→22:45)
--- NOTE | 2018-07-09 06:43 | NUR ---
MS RN CLOSING NOTES: ALL NEEDS WERE ATTENDED AND ANTICIPATED FOR. PT ON ROOM AIR AND TOLERATING WELL. NO SOB NOTED. NO S/S OF DISTRESS. PT ASLEEP AT THIS TIME AND RESTING COMFORTABLY. PT IS A/OX4. RIGHT FOOT DRESSING INTACT AND IS CLEAN AN DRY. ALSO, KEPT ELEVATED. BLOOD SUGAR THIS AM WAS 122. NO INSULIN WAS ADMINISTERED. PT HAS OSMAN PICC LINE AND IS BEING INFUSED WITH IV NS AT 60ML/HR. PT ALSO HAS RIGHT FOREARM #20G AND IS PATENT AND INTACT. PT ALSO HAS OLD L FOREARM FISTULA. BED KEPT IN LOW, LOCKED POSITION, AND SIDE RAILS X 2UP. WILL ENDORSE TO AM NURSE FOR DEJAH.
--- NOTE | 2018-07-09 07:30 | NUR ---
MSRN. PT RECEIVED A&0X3, AWAKE AND RESTING IN BED. PT TOLERATING ROOM AIR WITHOUT DISTRESS. PT REPORTS MODERATE PAIN TO R FOOT, DRESSING CLEAN AND INTACT, FOOT ELEVATED. PT WITH IVC AT R FA G#2O INTACT AND SALINE FLUSH PATENT, PICC AT R UA INTACT AND OPERATIONAL WITH IVF RX. PT BED IN LOWEST LOCKED POSITION WITH HANDRAILSX2 AND CALL ALEGRIA WITHIN REACH, BSC AND BELONGS WITHIN REACH, BRIEFED ON TODAY'S POC AND IS WITHOUT CONCERN OR COMPLAINT.
[2018-07-09 08:25] VITALS: BP_SYST 140; BP_SYST 180; BP_DIAS 60; BP_DIAS 78
[2018-07-09] MEDS: GLUCERNA SHAKE 237 ML CAN PO SCH ×3 (08:52→17:41)
[2018-07-09] MEDS: HYDROMORPHONE 1 MG/1 ML DISP.SYRIN IV PRN ×2 (08:52→17:23)
[2018-07-09] MEDS: MYCOPHENOLATE MOFETIL 250 MG CAPSULE PO SCH ×2 (08:53→20:44)
[2018-07-09] MEDS: AMLODIPINE BESYLATE 10 MG TABLET PO SCH (08:56)
[2018-07-09] MEDS: CARISOPRODOL 350 MG TABLET PO SCH ×2 (08:57→17:13)
[2018-07-09] MEDS: TACROLIMUS ANHYDROUS 1 MG CAPSULE PO SCH ×2 (08:57→20:44)
[2018-07-09] MEDS: SIMVASTATIN 10 MG TABLET PO SCH (08:57)
[2018-07-09] MEDS: LISINOPRIL (10MG) 10 MG TABLET PO SCH (08:57)
[2018-07-09] MEDS: GABAPENTIN 300 MG CAPSULE PO SCH ×3 (08:58→17:13)
[2018-07-09] MEDS: CARVEDILOL 12.5 MG TABLET PO SCH ×2 (08:58→17:13)
[2018-07-09] MEDS: predniSONE 5 MG TABLET PO SCH (08:58)
[2018-07-09] MEDS ORDERED: TACROLIMUS ANHYDROUS 1 MG CAPSULE PO SCH (09:00)
[2018-07-09] MEDS: CLOPIDOGREL BISULFATE 75 MG TABLET PO SCH (09:00)
[2018-07-09] MEDS: DAKINS HALF STRENGTH (0.25%) 480 ML BOTTLE TOP SCH (09:00)
[2018-07-09] MEDS: ONDANSETRON HCL/PF 4 MG/2 ML VIAL IVP PRN ×2 (09:05→17:22)
[2018-07-09] MEDS: LINEZOLID 600 MG TABLET PO SCH ×2 (09:47→20:44)
--- NOTE | 2018-07-09 11:00 | NUR ---
OS PRESENT FRO WOUND VAC PLACEMENT. VAC WORKING AND NAD.
[2018-07-09] MEDS: LEVOFLOXACIN (750 MG) 750 MG TABLET PO SCH (12:16)
[2018-07-09 12:18] LABS: *HGBFR CHEMOGLOBIN SOLUBILITY Negative (Negative); *HGBFRC HEMOGLOBIN A 68.9 % (96.4-98.8); *HGBFRC HEMOGLOBIN A2 4.1 % (1.8-3.2)
[2018-07-09 13:44] LABS: BASOPHILS % (AUTO) 0.1 % (0.0-2.0); EOSINOPHILS % (AUTO) 2.5 % (0.0-6.0); HEMATOCRIT 21 % (39-51); HEMOGLOBIN 7.1 g/dL (13.5-17.5); LYMPHOCYTES # (AUTO) 2.1 /CMM (0.8-4.8); LYMPHOCYTES % (AUTO) 29.9 % (20.0-44.0); MEAN CORPUSCULAR HGB CONC 34 g/dl (31.0-36.0); MEAN CORPUSCULAR VOLUME 80 fL (80-96); MONOCYTES # (AUTO) 0.2 /CMM (0.1-1.30); MONOCYTES % (AUTO) 2.5 % (2.0-12.0); NEUTROPHILS # (AUTO) 4.5 /CMM (1.8-8.9); PLATELET COUNT (AUTO) 152 /CMM (150-450); RED BLOOD CELL COUNT(AUTO) 2.64 MIL/uL (4.5-6.0); WHITE BLOOD COUNT (AUTO) 6.9 K/uL (4.3-11.0)
[2018-07-09 13:52] LABS: CALCIUM, SERUM 8.3 mg/dL (8.5-10.1); CREATININE 1.2 mg/dL (0.6-1.3); POTASSIUM 4.7 mmol/L (3.5-5.1)
[2018-07-09 16:01] VITALS: BP 136/78
--- NOTE | 2018-07-09 18:34 | NUR ---
MSRN. PT REMAINS A&0X3, AWAKE AND RESTING IN BED. PT TOLERATING ROOM AIR WITHOUT DISTRESS. PT REPORTS [place] PAIN MANAGEMENT AT THIS TIME. WOUND VAC AT R FOOT, DRESSING CLEAN AND INTACT, FOOT ELEVATED, NAD WITH VAC AND MAINTAINING 125MMHG. PT WITH IVC AT R FA G#2O SL, PICC AT R UA INTACT AND OPERATIONAL WITH IVF RX. PT BED IN LOWEST LOCKED POSITION WITH HANDRAILSX2 AND CALL ALEGRIA WITHIN REACH, BSC AND BELONGS WITHIN REACH, ALL DAY NURSE DUTIES ATTENDED TO AND PT IS WITHOUT CONCERN OR COMPLAINT AT THIS TIME. WILL ENDORSE TO NIGHT NURSE AT BEDSIDE FOR DEJAH.
--- NOTE | 2018-07-09 19:35 | NUR ---
MS RN OPENING NOTES: RECEIVED PT ON ROOM AIR AND IS SITTING UP IN BED. NO SOB NOTED. NO S/S OF DISTRESS. PT A/OX4. PT HAS R FOOT DRESSING INTACT AND KEPT CLEAN AND DRY. ELEVATED WELL. RIGHT FOOT ALSO ON WOUND VAC AND IS RUNNING AT 125MMHG. PT ALSO HAS OSMAN PICC LINE AND IS BEING INFUSED WITH IV NS AT 60ML/HR. BED KEPT IN LOW, LOCKED POSITION, AND SIDE RAILS X 2UP. WILL CONTINUE TO MONITOR PT.
[2018-07-09 20:00] VITALS: BP 131/70
[2018-07-09] MEDS: ZOLPIDEM TARTRATE 10 MG TABLET PO PRN (21:32)
--- NOTE | 2018-07-09 21:36 | NUR ---
MS RN NOTES: BLOOD SUGAR THIS EVENING WAS 204. 4 UNITS OF INSULIN WAS ADMINISTERED. SNACKS AT BEDSIDE. ALSO, PT REQUESTING FOR SLEEPING PILL. PT WAS ADMINISTERED AMBIEN 10MG PO. WILL CONTINUE TO MONITOR.
[2018-07-10] MEDS: PROMETHAZINE HCL SYRUP 6.25 MG/5 ML UDC PO SCH ×4 (06:00→23:59)
[2018-07-10] MEDS: BLOOD SUGAR DIAGNOSTIC 1 EACH STRIP IN SCH ×4 (06:14→21:50)
[2018-07-10] MEDS: INSULIN REGULAR, HUMAN 100 UNIT/ML 3 ML VIAL SQ PRN ×4 (06:15→21:54)
--- NOTE | 2018-07-10 06:15 | NUR ---
MS SOSA NOTES: BLOOD SUGAR THIS AM WAS 109. NO INSULIN WAS ADMINISTERED. WILL ENDORSE TO AM NURSE. Addendum: 07/10/18 at 0649 by TAMI OLIVARES RN 102
--- NOTE | 2018-07-10 06:16 | NUR ---
MS RN NOTES: PT DOES NOT WANT PROMETHAZINE AT THIS TIME. EXPLAINED TO PT RISKS AND BENEFITS X3. PT SAYS HE NO LONGER NEEDS IT.
--- NOTE | 2018-07-10 06:50 | NUR ---
MS RN CLOSING NOTES: ALL NEEDS WERE ATTENDED AND ANTICIPATED FOR. PT KEPT CLEAN, DRY, AND COMFORTABLE. PT ON ROOM AIR AND TOLERATING WELL. NO SOB NOTED. NO S/S OF DISTRESS. BLOOD SUGAR THIS AM WAS 102. NO INSULIN WAS ADMINISTERED. PT RESTING IN BED COMFORTABLY. PT'S PICC LINE BEING INFUSED WITH IV NS AT 60ML/HR. RIGHT FOREARM #20G IS PATENT AND INTACT. CURRENTLY H/L. PT HAS OLD FISTULA SITE ON LEFT FOREARM. PT NOT UNDERGOING DIALYSIS ANYMORE. RIGHT FOOT DRESSING REMAINS ELEVATED AND IS KEPT CLEAN AND DRY. WOUND VAC ON RIGHT FOOT WELL AND RUNNING AT 125MMHG. BED KEPT IN LOW, LOCKED POSITION, AND SIDE RAILS X 2UP. WILL ENDORSE TO AM NURSE FOR DEJAH.
--- NOTE | 2018-07-10 07:40 | NUR ---
MS RN Opening Note Received patient asleep comfortably, but easily arousable to name. Patient alert and oriented x4, able to make needs known. Respirations even and unlabored on room air, saturating at 98%. Peripheral IV to the right forearm 20 guage, intact, patent and saline locked. Access to the right upper arm PICC line, intact, patent and running NS at 60 mL. Patient with left forearm AV fistula, no longer being accessed. Right foot dressing, clean, dry and intact; extremity elevated, wound vac to site and running at 125 mmHg. Safety and Fall precautions in place: bed in lowest and locked position, side rails up x 2, bed alarm on, call light within reach. Reviewed safety measures and plan of care with patient, verbalized understanding. Will continue to monitor and intervene as needed.
[2018-07-10 07:59] LABS: BASOPHILS % (AUTO) 0.1 % (0.0-2.0); EOSINOPHILS % (AUTO) 2.4 % (0.0-6.0); LYMPHOCYTES # (AUTO) 2.4 /CMM (0.8-4.8); LYMPHOCYTES % (AUTO) 34.9 % (20.0-44.0); MEAN CORPUSCULAR HGB CONC 33 g/dl (31.0-36.0); MEAN CORPUSCULAR VOLUME 80 fL (80-96); MONOCYTES # (AUTO) 0.2 /CMM (0.1-1.30); MONOCYTES % (AUTO) 2.4 % (2.0-12.0); NEUTROPHILS # (AUTO) 4.2 /CMM (1.8-8.9); NEUTROPHILS % (AUTO) 60.2 % (43.0-81.0); PLATELET COUNT (AUTO) 144 /CMM (150-450); RED BLOOD CELL COUNT(AUTO) 2.47 MIL/uL (4.5-6.0); WHITE BLOOD COUNT (AUTO) 6.9 K/uL (4.3-11.0)
[2018-07-10 08:00] VITALS: BP 159/75
[2018-07-10 08:12] LABS: CALCIUM, SERUM 8.3 mg/dL (8.5-10.1); POTASSIUM 4.7 mmol/L (3.5-5.1)
[2018-07-10 08:26] LABS: HEMATOCRIT 20 % (39-51); HEMOGLOBIN 6.6 g/dL (13.5-17.5)
[2018-07-10] MEDS: GLUCERNA SHAKE 237 ML CAN PO SCH ×3 (08:36→16:35)
[2018-07-10] MEDS: GABAPENTIN 300 MG CAPSULE PO SCH ×3 (08:44→16:35)
[2018-07-10] MEDS: CARISOPRODOL 350 MG TABLET PO SCH ×2 (08:44→16:34)
[2018-07-10] MEDS: TACROLIMUS ANHYDROUS 1 MG CAPSULE PO SCH ×2 (08:44→20:29)
[2018-07-10] MEDS: SIMVASTATIN 10 MG TABLET PO SCH (08:45)
[2018-07-10] MEDS: MYCOPHENOLATE MOFETIL 250 MG CAPSULE PO SCH ×2 (08:45→20:29)
[2018-07-10] MEDS: CARVEDILOL 12.5 MG TABLET PO SCH ×2 (08:45→16:35)
[2018-07-10] MEDS: LINEZOLID 600 MG TABLET PO SCH ×2 (08:45→20:29)
[2018-07-10] MEDS: AMLODIPINE BESYLATE 10 MG TABLET PO SCH (08:45)
[2018-07-10] MEDS: predniSONE 5 MG TABLET PO SCH (08:45)
[2018-07-10] MEDS: LISINOPRIL (10MG) 10 MG TABLET PO SCH (08:46)
[2018-07-10] MEDS: CLOPIDOGREL BISULFATE 75 MG TABLET PO SCH (09:00)
[2018-07-10] MEDS: DAKINS HALF STRENGTH (0.25%) 480 ML BOTTLE TOP SCH (09:09)
[2018-07-10] MEDS: HYDROMORPHONE 1 MG/1 ML DISP.SYRIN IV PRN ×2 (09:44→17:58)
[2018-07-10] MEDS: LEVOFLOXACIN (750 MG) 750 MG TABLET PO SCH (12:13)
[2018-07-10 13:22] LABS: EOSINOPHILS % (MANUAL) 1 % (0-4); LYMPHOCYTES % (MANUAL) 24 % (16-48); MONOCYTES % (MANUAL) 1 % (0-11.0); NEUTROPHILS % (MANUAL) 74 (42-76)
[2018-07-10 15:49] VITALS: BP 144/69
[2018-07-10 16:00] VITALS: BP 144/69
[2018-07-10 18:45] LABS: BASOPHILS % (AUTO) 0.1 % (0.0-2.0); EOSINOPHILS % (AUTO) 0.6 % (0.0-6.0); LYMPHOCYTES % (AUTO) 34.9 % (20.0-44.0); MEAN CORPUSCULAR HGB CONC 33 g/dl (31.0-36.0); MEAN CORPUSCULAR VOLUME 80 fL (80-96); MONOCYTES # (AUTO) 0.1 /CMM (0.1-1.30); NEUTROPHILS # (AUTO) 3.6 /CMM (1.8-8.9); NEUTROPHILS % (AUTO) 62.4 % (43.0-81.0); PLATELET COUNT (AUTO) 142 /CMM (150-450); RED BLOOD CELL COUNT(AUTO) 2.54 MIL/uL (4.5-6.0); WHITE BLOOD COUNT (AUTO) 5.7 K/uL (4.3-11.0)
[2018-07-10 19:19] LABS: HEMOGLOBIN 6.8 g/dL (13.5-17.5)
[2018-07-10 19:20] LABS: HEMATOCRIT 20 % (39-51)
--- NOTE | 2018-07-10 19:25 | NUR ---
MS RN Closing Note Received currently awake, sitting up in bed. Patient alert and oriented x4, able to make needs known. Respirations even and unlabored on room air, saturating at 97%. Peripheral IV to the right forearm 20 guage, intact, patent and saline locked. Access to the right upper arm PICC line, intact, patent and running NS at 60 mL. Patient with left forearm AV fistula, no longer being accessed. Right foot dressing, clean, dry and intact; wound vac to site and running at 125 mmHg. 1200 blood glucose of 190; 3 units administered per mild sliding scale protocol. 1700 blood glucose of 191; 3 units administered with meal per mild sliding scale protocol per SEP. Morning H/H of 6.6 and 20%; GRAHAM Laird aware and Dr. Jansen's team also aware of recent H/H. Patient verbalized concern about recurrent transfusions due to his renal status. Per Henry Laird NP, orders to repeat the H/H this evening and transfuse blood unit(s) based on those results if needed if hemoglobin < 6.5. Will endorse orders to night warehouse selector. Safety and Fall precautions in place: bed in lowest and locked position, side rails up x 2, bed alarm on, call light within reach. Reviewed safety measures and plan of care with patient, verbalized understanding. Will endorse to night warehouse selector RN for continuity of care.
--- NOTE | 2018-07-10 19:30 | NUR ---
MS/RN OPENING NOTES PT RECEIVED AWAKE, TALKING ON THE PHONE. SITTING UP IN BED. ON ROOM AIR, BREATHING EVEN AND UNLABORED. DENIES SOB, PAIN IS TOLERABLE AT THIS TIME. OSMAN PICC LINE PATENT AND INTACT RUNNING IV NS AT 60ML/HR. PIV TO RFA PATENT AND INTACT. OLD LFA SHUNT NOTED. RIGHT FOOT DRESSING C/D/I WITH WOUND VAC TO 125MMHG- DARK RED OUTPUT NOTED. ELEVATED ON PILLOW. REPEAT CBC PENDING AT THIS TIME. PER DAY RN, [facility] GROUP WOULD LIKE TO LIMIT BLOOD TRANSFUSIONS MUCH POSSIBLE DUE TO PT'S RENAL TRANSPLANT. WITH ORDERS TO TRANSFUSE IF HGB <6.5. BED IN LOW/LOCKED POSITION WITH CALL LIGHT IN REACH, BILATERAL UPPER SIDE RAILS IN PLACE. WILL CONTINUE TO MONITOR
[2018-07-10 20:00] VITALS: BP 123/72
[2018-07-10] MEDS: CLOTRIMAZOLE 1% 15 GM TUBE TP SCH (20:29)
[2018-07-10 20:35] LABS: EOSINOPHILS % (MANUAL) 1 % (0-4); LYMPHOCYTES % (MANUAL) 30 % (16-48); MONOCYTES % (MANUAL) 3 % (0-11.0); NEUTROPHILS % (MANUAL) 66 (42-76)
[2018-07-10] MEDS: ZOLPIDEM TARTRATE 10 MG TABLET PO PRN (21:48)
--- NOTE | 2018-07-10 21:50 | NUR ---
MS/RN NOTES BLOOD SUGAR 171, ADMINISTERED 3 UNITS OF INSULIN PER SLIDING SCALE. SNACKS PROVIDED AT BEDSIDE. PT REQUESTING AMBIEN. ADMINISTERED ORDERED.
[2018-07-10] MEDS: IV NS 0.9% 1,000 ML IV PRN (21:58)
--- NOTE | 2018-07-11 | NUR ---
MS/RN NOTES PT REFUSING PHENERGAN SYRUP. STATES HE NO LONGER HAS COUGH AND DOESNT NEED IT ANYMORE
[2018-07-11] MEDS: PROMETHAZINE HCL SYRUP 6.25 MG/5 ML UDC PO SCH ×3 (06:00→18:00)
[2018-07-11] MEDS: BLOOD SUGAR DIAGNOSTIC 1 EACH STRIP IN SCH ×4 (06:33→21:37)
--- NOTE | 2018-07-11 06:35 | NUR ---
MS/RN NOTES BLOOD SUGAR 106, NO INSULIN COVERAGE. NO C/O PAIN AT THIS TIME. ALSO REFUSING 0600 PHENERGAN
[2018-07-11] MEDS: ONDANSETRON HCL/PF 4 MG/2 ML VIAL IVP PRN (06:50)
[2018-07-11] MEDS: HYDROMORPHONE 1 MG/1 ML DISP.SYRIN IV PRN (07:02)
--- NOTE | 2018-07-11 07:25 | NUR ---
MS/RN CLOSING NOTES PT WITH AWAKE. ON ROOM AIR, BREATHING EVEN AND UNLABORED. DENIES SOB, PAIN NOTED AT 9/10 TO RIGHT FOOT. ADMINISTERED PRN DILAUDID ORDERED. OLD LFA FISTULA NOTED. OSMAN PICC LINE IN PLACE AND INFUSING NS AT 60ML/HR. PIV TO RFA PATENT AND INTACT. REPEAT H&H LAST NIGHT RESULTED AT 6.[address] DR[address] KOCH MADE AWARE OF CRITICAL VALUE WITH PARAMETERS FOR TRANSFUSION IF HBG <6.5. NO NEW ORDERS EXCEPT CBC IN AM. NO ACTIVE BLEEDING NOTED AT THIS TIME. DRESSING TO RLE C/D/I WITH WOUND VAC RUNNING AT 125MMG. NO SIGNIFICANT CHANGES OVERNIGHT. ALL NEEDS MET. BED IN LOW/LOCKED POSITION WITH CALL LIGHT IN REACH, SEMI FOWLERS AND BILATERAL UPPER SIDE RAILS IN PLACE. WILL ENDORSE TO DAY SHIFT RN DEJAH.
[2018-07-11 07:26] LABS: BASOPHILS % (AUTO) 0.2 % (0.0-2.0); EOSINOPHILS % (AUTO) 2.3 % (0.0-6.0); LYMPHOCYTES # (AUTO) 2.5 /CMM (0.8-4.8); LYMPHOCYTES % (AUTO) 40.2 % (20.0-44.0); MEAN CORPUSCULAR HGB CONC 34 g/dl (31.0-36.0); MEAN CORPUSCULAR VOLUME 79 fL (80-96); MONOCYTES # (AUTO) 0.1 /CMM (0.1-1.30); MONOCYTES % (AUTO) 2.2 % (2.0-12.0); NEUTROPHILS # (AUTO) 3.4 /CMM (1.8-8.9); NEUTROPHILS % (AUTO) 55.1 % (43.0-81.0); PLATELET COUNT (AUTO) 135 /CMM (150-450); RED BLOOD CELL COUNT(AUTO) 2.49 MIL/uL (4.5-6.0); WHITE BLOOD COUNT (AUTO) 6.2 K/uL (4.3-11.0)
--- NOTE | 2018-07-11 07:34 | NUR ---
MS RN OPENING NOTES PT RECEIVED AWAKE IN BED IN NO ACUTE SIGNS OF DISTRESS. A/O X4. ABLE TO VERBALIZED NEEDS, NO C/O PAIN OR DISCOMFORTS VOICED AT THIS TIME. ON ROOM AIR, BREATHING EVEN AND UNLABORED. OSMAN PICC LINE INTACT AND PATENT WITH IVF OF NS @ 60ML/HR IN FUSING WELL. PIV TO RFA PATENT AND INTACT. OLD LFA SHUNT NOTED. RIGHT FOOT DRESSING C/D/I WITH WOUND VAC IN PLACE @ 125MMHG IN PROGRESS WITH DARK RED OUTPUT NOTED. SAFETY MEASURES IN PLACE. BED IN LOW/LOCKED POSITION WITH CALL LIGHT IN REACH. B/L UPPER SR UP X2. WILL CONTINUE TO MONITOR
[2018-07-11 07:36] LABS: CALCIUM, SERUM 8.7 mg/dL (8.5-10.1); CREATININE 1.1 mg/dL (0.6-1.3)
[2018-07-11 07:44] LABS: HEMOGLOBIN 6.8 g/dL (13.5-17.5)
[2018-07-11 07:45] LABS: HEMATOCRIT 20 % (39-51)
[2018-07-11 08:00] VITALS: BP 153/87
[2018-07-11 08:00] LABS: EOSINOPHILS % (MANUAL) 1 % (0-4); LYMPHOCYTES % (MANUAL) 31 % (16-48); MONOCYTES % (MANUAL) 4 % (0-11.0); NEUTROPHILS % (MANUAL) 64 (42-76)
[2018-07-11] MEDS: GLUCERNA SHAKE 237 ML CAN PO SCH ×3 (08:11→17:14)
[2018-07-11] MEDS: predniSONE 5 MG TABLET PO SCH (08:14)
[2018-07-11] MEDS: CARVEDILOL 12.5 MG TABLET PO SCH ×2 (08:14→16:48)
[2018-07-11] MEDS: TACROLIMUS ANHYDROUS 1 MG CAPSULE PO SCH ×2 (08:14→21:37)
[2018-07-11] MEDS: AMLODIPINE BESYLATE 10 MG TABLET PO SCH (08:14)
[2018-07-11] MEDS: SIMVASTATIN 10 MG TABLET PO SCH (08:15)
[2018-07-11] MEDS: MYCOPHENOLATE MOFETIL 250 MG CAPSULE PO SCH ×2 (08:15→21:37)
[2018-07-11] MEDS: GABAPENTIN 300 MG CAPSULE PO SCH ×3 (08:15→16:47)
[2018-07-11] MEDS: CARISOPRODOL 350 MG TABLET PO SCH ×2 (08:16→16:47)
[2018-07-11] MEDS: LISINOPRIL (10MG) 10 MG TABLET PO SCH (08:17)
[2018-07-11] MEDS: LINEZOLID 600 MG TABLET PO SCH ×2 (08:21→21:37)
--- NOTE | 2018-07-11 08:23 | NUR ---
RN NOTES PATIENT NOTED WITH LOW HGB 6.8, QUALITY PROCESS LEAD TEMO DIETRICH MADE AWARE WITH NO NEW ORDER MADE AT THIS TIME. WILL CONTINUE TO MONITOR
[2018-07-11] MEDS: DAKINS HALF STRENGTH (0.25%) 480 ML BOTTLE TOP SCH (08:25)
[2018-07-11] MEDS: CLOTRIMAZOLE 1% 15 GM TUBE TP SCH ×2 (08:26→17:17)
[2018-07-11] MEDS: CLOPIDOGREL BISULFATE 75 MG TABLET PO SCH (08:27)
[2018-07-11] MEDS: INSULIN REGULAR, HUMAN 100 UNIT/ML 3 ML VIAL SQ PRN ×3 (11:53→21:58)
[2018-07-11] MEDS: LEVOFLOXACIN (750 MG) 750 MG TABLET PO SCH (12:39)
[2018-07-11] MEDS: PANTOPRAZOLE 40 MG VIAL IV SCH (14:55)
[2018-07-11] MEDS: IV NS 0.9% 1,000 ML IV PRN (14:55)
[2018-07-11 16:00] VITALS: BP 135/71
[2018-07-11 16:27] LABS: ALBUMIN 2.2 g/dL (3.4-5.0); BILIRUBIN,DIRECT 0.1 mg/dL (0.0-0.2); BILIRUBIN,TOTAL 0.5 mg/dL (0.2-1.0); TOTAL PROTEIN, SERUM 5.6 g/dL (6.4-8.2)
--- NOTE | 2018-07-11 18:36 | NUR ---
MS RN CLOSING NOTES PATIENT IN BED ASLEEP AT THIS TIME, EASILY AROUSABLE. A/O X4. ABLE TO VERBALIZED NEEDS. ON ROOM AIR, BREATHING EVEN WITH NO ACUTE RESPIRATORY DISTRESS NOTED. RIGHT FOOT DRESSING C/D/I WITH WOUND VAC IN PLACE @ 125MMHG PRESSURE WITH DARK RED OUTPUT NOTED. OSMAN PICC LINE INTACT AND PATENT WITH IVF OF NS @ 60ML/HR INFUSING WELL. PIV TO RFA PATENT AND INTACT. OLD LFA SHUNT NOTED. ALL SAFETY MEASURES IN PLACE. BED IN LOW/LOCKED POSITION WITH CALL LIGHT IN REACH. B/L UPPER SR UP X2. ALL NEEDS AND CARE ATTENDED WELL. WILL ENDORSE TO CLUB STEWARD NURSE FOR DEJAH
--- NOTE | 2018-07-11 19:30 | NUR ---
MS/RN OPENING NOTES PT RECEIVED WITH EYES CLOSED. OPENS EYES SPONTANEOUSLY TO NAME. ON ROOM AIR, BREATHING EVEN AND UNLABORED. DENIES SOB. NOTES ABDOMINAL PAIN AND SOME NAUSEA. PT AGREED TO REGLAN AND MAALOX. OSMAN PICC LINE PATENT AND INTACT RUNNING IVF ORDERED. RFA IV PATENT AND INTACT. RIGHT FOOT DRESSING C/D/I, WOUND VAC IN PLACE RUNNING 125MMHG. BED IN LOW/LOCKED POSITION WITH CALL LIGHT IN REACH. SIDE RAILS UP X3. WILL CONTINUE TO MONITOR
[2018-07-11 20:00] VITALS: BP 125/47
[2018-07-11] MEDS: METOCLOPRAMIDE HCL 10 MG/2 ML VIAL IV PRN (20:17)
[2018-07-11] MEDS: MAG HYDROX/AL HYDROX/SIMETH 30 ML UDC PO PRN (20:23)
--- NOTE | 2018-07-11 20:31 | NUR ---
MS/RN NOTES PT C/O NAUSEA AND UPSET STOMACH. ADMINISTERED PRN REGLAN AND MAALOX ORDERED. PT STATES HE FEELS "STUFFED". ABDOMEN IS SOFT, NOT TENDER, BOWEL SOUNDS PRESENT. WILL MONITOR FOR EFFECTIVENESS
--- NOTE | 2018-07-11 21:40 | NUR ---
MS/RN NOTES PT WITH ONE LARGE BM. STATES HE FEELS BETTER AFTER BM AND MAALOX. DENIES NAUSEA AT THIS TIME. 1MG CAPSULE FELL ON THE FLOOR. WASTED 1MG CAPSULE IN OMNICELL. PULLED ANOTHER 1MG AND ADMINISTERED ORDERED.
--- NOTE | 2018-07-12 00:12 | NUR ---
MS/RN NOTES REFUSED PHENERGAN DESPITE EDUCATION X3. PT STATES HE NO LONGER HAS A COUGH, IS NOT NAUSEATED ANYMORE AND DOES NOT LIKE THE TASTE.
[2018-07-12] MEDS: ZOLPIDEM TARTRATE 10 MG TABLET PO PRN ×2 (01:13→21:32)
[2018-07-12] MEDS: PROMETHAZINE HCL SYRUP 6.25 MG/5 ML UDC PO SCH ×4 (06:00→17:44)
[2018-07-12] MEDS: BLOOD SUGAR DIAGNOSTIC 1 EACH STRIP IN SCH ×4 (06:25→21:52)
--- NOTE | 2018-07-12 06:26 | NUR ---
MS/RN NOTES PT REFUSING PHENERGAN, STATES ITS NOT EFFECTIVE FOR HIM. REGLAN WAS THE MOST EFFECTIVE. BLOOD SUGAR 103, NO INSULIN COVERAGE. SNACKS AT BEDSIDE. DENIES PAIN AT THIS TIME.
[2018-07-12 06:53] LABS: BASOPHILS % (AUTO) 0.3 % (0.0-2.0); EOSINOPHILS % (AUTO) 2.2 % (0.0-6.0); LYMPHOCYTES # (AUTO) 2.8 /CMM (0.8-4.8); MEAN CORPUSCULAR HGB CONC 33 g/dl (31.0-36.0); MEAN CORPUSCULAR VOLUME 81 fL (80-96); MONOCYTES # (AUTO) 0.1 /CMM (0.1-1.30); MONOCYTES % (AUTO) 1.5 % (2.0-12.0); NEUTROPHILS # (AUTO) 3.3 /CMM (1.8-8.9); PLATELET COUNT (AUTO) 129 /CMM (150-450); RED BLOOD CELL COUNT(AUTO) 2.45 MIL/uL (4.5-6.0); WHITE BLOOD COUNT (AUTO) 6.4 K/uL (4.3-11.0)
--- NOTE | 2018-07-12 06:57 | NUR ---
MS/RN CLOSING NOTES PT AWAKE, SEMI FOWLERS. ON ROOM AIR, BREATHING EVEN AND UNLABORED. DENIES SOB/PAIN AND NAUSEA AT THIS TIME. OSMAN PICC LINE PATENT AND INTACT RUNNING IVF ORDERED. RFA IV PATENT AND INTACT. RIGHT FOOT DRESSING REMAINS C/D/I WITH WOUND VAC ATTACHED AT 125MMG. MD TO CHANGE TODAY. WITH OLD LFA FISTULA . REGLAN EFFECTIVE FOR NAUSEA. ENCOURAGED PO INTAKE TOLERATED. NO SIGNIFICANT CHANGES OVERNIGHT. ALL NEEDS MET. BED REMAINS IN LOW/LOCKED POSITION WITH CALL LIGHT IN REACH. BILATERAL UPPER SIDE RAILS IN PLACE. WILL ENDORSE TO DAY SHIFT RN DEJAH.
[2018-07-12 07:04] LABS: CALCIUM, SERUM 8.8 mg/dL (8.5-10.1)
--- NOTE | 2018-07-12 07:30 | NUR ---
RN OPENING NOTES RECEIVED PATIENT AWAKE, A/OX4, ABLE TO MAKE NEEDS KNOWN. ON ROOM AIR, BREATHING EVEN AND UNLABORED. DENIES SOB. NOT IN ANY FORM OF DISTRESS. COMLAINTS OF PAIN ON RIGHT FOOT, WILL ADMINISTER PAIN MEDS ORDERED. OSMAN PICC LINE PATENT AND INTACT RUNNING IVF ORDERED. RFA IV PATENT AND INTACT. RIGHT FOOT DRESSING C/D/I, WOUND VAC IN PLACE RUNNING 125MMHG. BED IN LOW/LOCKED POSITION WITH CALL LIGHT IN REACH. SIDE RAILS UP X3. WILL CONTINUE TO MONITOR ACCORDINGLY
[2018-07-12 08:10] VITALS: BP 155/75
[2018-07-12] MEDS: GLUCERNA SHAKE 237 ML CAN PO SCH ×3 (08:20→17:40)
[2018-07-12] MEDS: MYCOPHENOLATE MOFETIL 250 MG CAPSULE PO SCH ×2 (08:21→20:39)
[2018-07-12] MEDS: TACROLIMUS ANHYDROUS 1 MG CAPSULE PO SCH ×2 (08:22→20:40)
[2018-07-12 08:24] LABS: HEMATOCRIT 20 % (39-51); HEMOGLOBIN 6.6 g/dL (13.5-17.5)
[2018-07-12] MEDS: CARISOPRODOL 350 MG TABLET PO SCH ×2 (08:25→17:00)
[2018-07-12] MEDS: LINEZOLID 600 MG TABLET PO SCH ×2 (08:25→20:39)
[2018-07-12] MEDS: GABAPENTIN 300 MG CAPSULE PO SCH ×3 (08:25→16:17)
[2018-07-12] MEDS: predniSONE 5 MG TABLET PO SCH (08:25)
[2018-07-12] MEDS: SIMVASTATIN 10 MG TABLET PO SCH (08:26)
[2018-07-12] MEDS: AMLODIPINE BESYLATE 10 MG TABLET PO SCH (08:26)
[2018-07-12] MEDS: CARVEDILOL 12.5 MG TABLET PO SCH ×2 (08:26→16:17)
[2018-07-12] MEDS: METOCLOPRAMIDE HCL 10 MG/2 ML VIAL IV PRN (08:27)
[2018-07-12] MEDS: HYDROMORPHONE 1 MG/1 ML DISP.SYRIN IV PRN ×2 (08:32→21:38)
[2018-07-12] MEDS: CLOPIDOGREL BISULFATE 75 MG TABLET PO SCH (08:35)
[2018-07-12] MEDS: LISINOPRIL (10MG) 10 MG TABLET PO SCH (08:35)
[2018-07-12] MEDS: CLOTRIMAZOLE 1% 15 GM TUBE TP SCH ×2 (08:36→16:23)
[2018-07-12] MEDS: DAKINS HALF STRENGTH (0.25%) 480 ML BOTTLE TOP SCH (08:36)
[2018-07-12] MEDS: IV NS 0.9% 1,000 ML IV PRN (08:40)
[2018-07-12 09:59] LABS: LYMPHOCYTES % (MANUAL) 31 % (16-48); MONOCYTES % (MANUAL) 1 % (0-11.0); NEUTROPHILS % (MANUAL) 68 (42-76)
--- NOTE | 2018-07-12 10:00 | NUR ---
DR HERNANDEZ AT BEDSIDE DOING WOUND DRESSING CHANGE ON RIGHT FOOT.
[2018-07-12] MEDS ORDERED: EPOETIN ALFA (40,000 UNIT) 40,000 UNIT/ML VIAL SQ ONE (12:00)
[2018-07-12] MEDS ORDERED: EPOETIN ALFA (20,000 UNIT) 20,000 UNIT/ML VIAL IV ONE (12:00)
[2018-07-12] MEDS: LEVOFLOXACIN (750 MG) 750 MG TABLET PO SCH (12:15)
[2018-07-12] MEDS: INSULIN REGULAR, HUMAN 100 UNIT/ML 3 ML VIAL SQ PRN ×3 (12:18→21:37)
[2018-07-12] MEDS: PANTOPRAZOLE 40 MG VIAL IV SCH (15:47)
[2018-07-12 16:00] VITALS: BP 140/54
--- NOTE | 2018-07-12 18:52 | NUR ---
RN CLOSING NOTES PATIENT IN STABLE CONDITION. ALL NEEDS ATTENDED AND PROVIDED. ALL DUE MEDICATIONS GIVEN ORDERED. KEPT PATIENT SAFE AND COMFORTABLE. BED IN LOW/LOCKED POSITION, SIDERAILS UP, CALL LIGHT IN REACH. WILL ENDORSED TO NIGHT RN FOR DEJAH.
--- NOTE | 2018-07-12 19:36 | NUR ---
RN MS MS OPENING NOTES RECEIVED PT IN BED, AWAKE, ALERT AND ORIENTEDX4. BREATHING EVEN AND UNLABORED. ON RA, NO SOB NOTED, NO COMPLAINT OF PAIN OR DISCOMFORT AT THE MOMENT. PT HAS RIGHT UPPER ARM PICC LINE, PATENT AND FLUSHING. WOUND VAC IN PLACE AND SUCTIONING. BED IN LOWEST LOCKED POSITION, CALL LIGHT WITHIN REACH AT ALL TIMES, WILL CONTINUE TO MONITOR.
[2018-07-12 20:00] VITALS: BP 137/53
[2018-07-13] VITALS (9 sets, daily range): BP systolic 132–153; BP diastolic 52–89
[2018-07-13] MEDS: PROMETHAZINE HCL SYRUP 6.25 MG/5 ML UDC PO SCH ×4 (06:00→17:39)
[2018-07-13] MEDS: BLOOD SUGAR DIAGNOSTIC 1 EACH STRIP IN SCH ×4 (06:32→22:05)
--- NOTE | 2018-07-13 06:37 | NUR ---
PT REMAINS IN BED, AWAKE ALERT ORIENTEDX4, BREATHING EVEN AND UNLABORED ON RA, NO SOB NOTED, NO COMPLAINT OF PAIN OF DISCOMFORT AT THE TIME. OSMAN PICC LINE PATENT AND FLUSHING.WOUND VAC IN PLACE AND SUCTIONING @ 122MMHG. BED IN LOWEST LOCKED POSITION, CALL LIGHT WITHIN REACH AT ALL TIMES, WILL ENDORSE TO DAY NURSE FOR DEJAH
[2018-07-13 07:23] LABS: BASOPHILS % (AUTO) 0.4 % (0.0-2.0); EOSINOPHILS % (AUTO) 3.5 % (0.0-6.0); LYMPHOCYTES # (AUTO) 2.6 /CMM (0.8-4.8); LYMPHOCYTES % (AUTO) 46.4 % (20.0-44.0); MEAN CORPUSCULAR HGB CONC 34 g/dl (31.0-36.0); MEAN CORPUSCULAR VOLUME 80 fL (80-96); MONOCYTES # (AUTO) 0.1 /CMM (0.1-1.30); MONOCYTES % (AUTO) 1.8 % (2.0-12.0); NEUTROPHILS # (AUTO) 2.7 /CMM (1.8-8.9); NEUTROPHILS % (AUTO) 47.9 % (43.0-81.0); PLATELET COUNT (AUTO) 124 /CMM (150-450); RED BLOOD CELL COUNT(AUTO) 2.33 MIL/uL (4.5-6.0); WHITE BLOOD COUNT (AUTO) 5.6 K/uL (4.3-11.0)
[2018-07-13 07:30] LABS: HEMATOCRIT 19 % (39-51); HEMOGLOBIN 6.3 g/dL (13.5-17.5)
--- NOTE | 2018-07-13 07:30 | NUR ---
RN Note AM hemoglobin of 6.3 and hematocrit of 19% per lab. Will luz maria TAVERA with critical lab result.
--- NOTE | 2018-07-13 07:39 | NUR ---
MS RN Opening Note Received patient awake, watching TV in bed. Patient alert and oriented x4, able to make needs known. Respirations even and unlabored on room air, saturating at 98%. Access on the right upper arm PICC line, intact, patent and saline locked. Patient with left forearm AV fistula, no longer being accessed. Right foot dressing, clean, dry and intact; wound vac to site and running at 125 mmHg. Safety and Fall precautions in place: bed in lowest and locked position, side rails up x 2, bed alarm on, call light within reach. Reviewed safety measures and plan of care with patient, verbalized understanding. Will continue to monitor and intervene as needed.
[2018-07-13 07:46] LABS: CALCIUM, SERUM 8.6 mg/dL (8.5-10.1); CREATININE 1.1 mg/dL (0.6-1.3); POTASSIUM 4.7 mmol/L (3.5-5.1)
[2018-07-13] MEDS: GLUCERNA SHAKE 237 ML CAN PO SCH ×3 (08:24→17:28)
[2018-07-13] MEDS: MYCOPHENOLATE MOFETIL 250 MG CAPSULE PO SCH ×2 (08:25→20:10)
[2018-07-13] MEDS: predniSONE 5 MG TABLET PO SCH (08:25)
[2018-07-13] MEDS: GABAPENTIN 300 MG CAPSULE PO SCH ×3 (08:25→17:28)
[2018-07-13] MEDS: LISINOPRIL (10MG) 10 MG TABLET PO SCH (08:25)
[2018-07-13] MEDS: CARVEDILOL 12.5 MG TABLET PO SCH ×2 (08:26→17:28)
[2018-07-13] MEDS: TACROLIMUS ANHYDROUS 1 MG CAPSULE PO SCH ×2 (08:26→20:11)
[2018-07-13] MEDS: SIMVASTATIN 10 MG TABLET PO SCH (08:26)
[2018-07-13] MEDS: AMLODIPINE BESYLATE 10 MG TABLET PO SCH (08:26)
[2018-07-13] MEDS: LINEZOLID 600 MG TABLET PO SCH ×2 (08:31→20:11)
[2018-07-13] MEDS: DAKINS HALF STRENGTH (0.25%) 480 ML BOTTLE TOP SCH (08:35)
[2018-07-13] MEDS: CLOTRIMAZOLE 1% 15 GM TUBE TP SCH ×2 (08:35→17:39)
[2018-07-13] MEDS: CARISOPRODOL 350 MG TABLET PO SCH ×2 (08:51→17:00)
[2018-07-13] MEDS: METOCLOPRAMIDE HCL 10 MG/2 ML VIAL IV PRN (08:51)
[2018-07-13] MEDS: CLOPIDOGREL BISULFATE 75 MG TABLET PO SCH (09:00)
[2018-07-13 09:04] LABS: EOSINOPHILS % (MANUAL) 2 % (0-4); LYMPHOCYTES % (MANUAL) 45 % (16-48); MONOCYTES % (MANUAL) 2 % (0-11.0); NEUTROPHILS % (MANUAL) 51 (42-76)
--- NOTE | 2018-07-13 10:00 | NUR ---
MS RN Note Patient currently awake of hemodynamic status. Educated patient on risks and benefits of blood transfusion due to low hemoglobin and hematocrit, however, patient currently refusing blood transfusion. Wishes to speak to the nephrology team, will follow-up. Addendum: 07/13/18 at 1955 by APPLE TODD RN Aware
--- NOTE | 2018-07-13 12:00 | NUR ---
MS RN Note Patient able to speak with MD Belinda of nephrology team. Educated patient on risks and benefits of blood transfusion due to low hemoglobin and hematocrit, patient currently agreeable to transfusion of 1 unit of PRBC. New orders entered. Currently aware of hemodynamic status. Will have consent form signed.
[2018-07-13] MEDS: HYDROMORPHONE INJ 2 MG/ML DISP.SYRIN IV PRN (12:42)
[2018-07-13] MEDS: INSULIN REGULAR, HUMAN 100 UNIT/ML 3 ML VIAL SQ PRN ×2 (12:48→18:19)
[2018-07-13] MEDS: LEVOFLOXACIN (750 MG) 750 MG TABLET PO SCH (12:52)
[2018-07-13] MEDS: PANTOPRAZOLE 40 MG VIAL IV SCH (14:30)
[2018-07-13] MEDS ORDERED: MAGNESIUM CITRATE 296 ML BOTTLE PO ONE (17:00)
[2018-07-13] MEDS ORDERED: PEG 3350/NA SULF,BICARB,CL/KCL 4,000 ML BOTTLE PO ONE (17:00)
[2018-07-13] MEDS ORDERED: NA PHOS,M-B/NA PHOS,DI-BA 1 EA ENEMA RC PRN (17:00)
--- NOTE | 2018-07-13 18:30 | NUR ---
MS RN Closing Note Patient currently awake, watching TV in bed. Patient alert and oriented x4, able to make needs known. Respirations even and unlabored on room air, saturating at 98%. Access on the right upper arm PICC line, intact, patent and saline locked. Patient with left forearm AV fistula, no longer being accessed. Right foot dressing, clean, dry and intact; wound vac to site and running at 125 mmHg. Consent forms signs for blood transfusion and procedures tomorrow, began G.I. prep as ordered. Called downstairs to pharmacy twice for GoLytely solution, will endorse to oncoming RN. Safety and Fall precautions in place: bed in lowest and locked position, side rails up x 2, bed alarm on, call light within reach. Reviewed safety measures and plan of care with patient and family, verbalized understanding. Will endorse to line manager RN for continuity of care.
--- NOTE | 2018-07-13 19:18 | NUR ---
RN MS MS OPENING NOTES RECEIVED PT IN BED, AWAKE, ALERT AND ORIENTEDX4. BREATHING EVEN AND UNLABORED. ON RA, NO SOB NOTED, NO COMPLAINT OF PAIN OR DISCOMFORT AT THE MOMENT. PT HAS RIGHT UPPER ARM PICC LINE, PATENT AND FLUSHING. WOUND VAC IN PLACE AND SUCTIONING. AWAITING BLOOD TRANSFUSION. BED IN LOWEST LOCKED POSITION, CALL LIGHT WITHIN REACH AT ALL TIMES, WILL CONTINUE TO MONITOR.
--- NOTE | 2018-07-13 21:40 | NUR ---
BLOOD TRANSFUSION BEGUN
[2018-07-13] MEDS: ONDANSETRON HCL/PF 4 MG/2 ML VIAL IVP PRN (23:04)
[2018-07-14 01:30] VITALS: BP 167/56
[2018-07-14] MEDS: PROMETHAZINE HCL SYRUP 6.25 MG/5 ML UDC PO SCH ×4 (05:10→17:19)
--- NOTE | 2018-07-14 06:17 | NUR ---
PT REMAINS IN BED, AWAKE ALERT ORIENTEDX4, BREATHING EVEN AND UNLABORED ON RA, NO SOB NOTED, NO COMPLAINT OF PAIN OF DISCOMFORT AT THE TIME. PT NPO FOR PROCEDURES. OSMAN PICC LINE PATENT AND FLUSHING.WOUND VAC IN PLACE AND SUCTIONING @ 125MMHG. BED IN LOWEST LOCKED POSITION, CALL LIGHT WITHIN REACH AT ALL TIMES, WILL ENDORSE TO DAY NURSE FOR DEJAH
[2018-07-14 06:31] LABS: BASOPHILS % (AUTO) 0.3 % (0.0-2.0); HEMATOCRIT 23 % (39-51); HEMOGLOBIN 7.8 g/dL (13.5-17.5); LYMPHOCYTES # (AUTO) 2.1 /CMM (0.8-4.8); LYMPHOCYTES % (AUTO) 39.2 % (20.0-44.0); MEAN CORPUSCULAR HGB CONC 34 g/dl (31.0-36.0); MEAN CORPUSCULAR VOLUME 81 fL (80-96); MONOCYTES # (AUTO) 0.1 /CMM (0.1-1.30); MONOCYTES % (AUTO) 2.2 % (2.0-12.0); NEUTROPHILS % (AUTO) 55.3 % (43.0-81.0); PLATELET COUNT (AUTO) 123 /CMM (150-450); WHITE BLOOD COUNT (AUTO) 5.4 K/uL (4.3-11.0)
[2018-07-14 06:38] LABS: CALCIUM, SERUM 8.7 mg/dL (8.5-10.1); MAGNESIUM 1.4 mg/dL (1.8-2.4); PHOSPHORUS 2.6 mg/dL (2.5-4.9); POTASSIUM 4.4 mmol/L (3.5-5.1)
--- NOTE | 2018-07-14 07:24 | NUR ---
MS RN Opening Note Received patient awake, watching TV in bed. Patient alert and oriented x4, able to make needs known. Respirations even and unlabored on room air. Access on the right upper arm PICC line, intact, patent and saline locked. Patient with left forearm AV fistula, no longer being accessed. Right foot dressing, clean, dry and intact; wound vac to site and running at 125 mmHg. Patient NPO for procedures this shift. Safety and Fall precautions in place: bed in lowest and locked position, side rails up x 2, bed alarm on, call light within reach. Reviewed safety measures and plan of care with patient, verbalized understanding. Will continue to monitor and intervene as needed.
[2018-07-14] MEDS: BLOOD SUGAR DIAGNOSTIC 1 EACH STRIP IN SCH ×5 (07:28→21:38)
[2018-07-14] MEDS: GLUCERNA SHAKE 237 ML CAN PO SCH ×3 (07:29→16:31)
[2018-07-14 08:00] VITALS: BP 154/91
[2018-07-14] MEDS: DAKINS HALF STRENGTH (0.25%) 480 ML BOTTLE TOP SCH (09:00)
[2018-07-14] MEDS: predniSONE 5 MG TABLET PO SCH (09:00)
[2018-07-14] MEDS: VALSARTAN 80 MG TABLET PO SCH (09:00)
[2018-07-14] MEDS: LINEZOLID 600 MG TABLET PO SCH ×2 (09:00→21:23)
[2018-07-14] MEDS: CLOPIDOGREL BISULFATE 75 MG TABLET PO SCH (09:00)
[2018-07-14] MEDS: CARVEDILOL 12.5 MG TABLET PO SCH ×2 (09:00→16:31)
[2018-07-14] MEDS: CLOTRIMAZOLE 1% 15 GM TUBE TP SCH ×2 (09:00→16:31)
[2018-07-14] MEDS: CARISOPRODOL 350 MG TABLET PO SCH ×2 (09:00→16:32)
[2018-07-14] MEDS: MYCOPHENOLATE MOFETIL 250 MG CAPSULE PO SCH ×2 (09:00→21:23)
[2018-07-14] MEDS: AMLODIPINE BESYLATE 10 MG TABLET PO SCH (09:00)
[2018-07-14] MEDS: SIMVASTATIN 10 MG TABLET PO SCH (09:00)
[2018-07-14] MEDS: TACROLIMUS ANHYDROUS 1 MG CAPSULE PO SCH ×2 (09:00→21:23)
[2018-07-14] MEDS: GABAPENTIN 300 MG CAPSULE PO SCH ×3 (09:00→16:31)
[2018-07-14] MEDS: Magnesium 1GM/D5W 100ML PREMIX 100 ML IV SCH ×4 (10:12→16:34)
[2018-07-14] MEDS ORDERED: ANESTHESIA TRAY IN PYXIS 1 EA TRAY MC ONE (12:21)
--- NOTE | 2018-07-14 12:35 | NUR ---
MS newspaper copy editor Note Patient transported off unit by surgical staff, in stable condition, via bed to OR.
[2018-07-14] MEDS: LEVOFLOXACIN (750 MG) 750 MG TABLET PO SCH (13:00)
--- NOTE | 2018-07-14 14:30 | NUR ---
MS RN Note Patient returned to room from OR, in stable condition via bed. Vital signs stable. Will order clear liquid diet, advance as tolerated. Post-op orders received, will carry out. Will continue to monitor patient.
[2018-07-14 16:00] VITALS: BP 139/75
[2018-07-14] MEDS: PANTOPRAZOLE 40 MG VIAL IV SCH (16:30)
[2018-07-14] MEDS: SUCRALFATE 1 G TABLET PO SCH ×2 (16:33→21:22)
--- NOTE | 2018-07-14 19:00 | NUR ---
MS RN Closing Note Patient currently awake, watching TV in bed. Patient alert and oriented x4, able to make needs known. Respirations even and unlabored on room air, saturating at 98%. Access on the right upper arm PICC line, intact, patent and saline locked. Patient with left forearm AV fistula, no longer being accessed. Right foot dressing, clean, dry and intact; wound vac to site and running at 125 mmHg. Medications given as ordered and orders carried out this shift. Patient on clear liquid diet until 1/3 breakfast per GI team, advance as tolerated. Safety and Fall precautions in place: bed in lowest and locked position, side rails up x 2, bed alarm on, call light within reach. Reviewed safety measures and plan of care with patient and family, verbalized understanding. Will endorse to operation shift supervisor RN for continuity of care.
--- NOTE | 2018-07-14 19:00 | NUR ---
RN MS OPENING NOTES RECEIVED PATIENT IN BED AWAKE ALERT AND ORIENTED X 4, RESPIRATIONS EVEN AND UNLABORED WITH EQUAL RISE AND FALL OF CHEST, DENIES ANY PAIN OR DISCOMFORT AT THIS TIME, URINAL AND BEDSIDE COMMODE AT BEDSIDE AND WITHIN REACH, WOUND VAC AT 125MMHG WITH PROPER SEAL AND SUCTION TO RIGHT FOOT, DRESSING IS CLEAN, DRY AND INTACT, RIGHT UPPER ARM PICC LINE IN PLACE, INTACT AND PATENT WITH BLOOD RETURN. FLUSHED, ORIENTED TO STAFF AND CALL LIGHT AND KEPT WITHIN REACH, FLUIDS OFFERED,ALL NEEDS ATTENDED REMAINS COMFORTABLE, WILL CONTINUE TO MONITOR PATIENT IS COMFORTABLE AT THIS TIME.
[2018-07-14 20:00] VITALS: BP 167/76
[2018-07-14 20:27] VITALS: BP 167/76
--- NOTE | 2018-07-14 21:22 | NUR ---
RN MS NOTES NOTED PATIENT BP 167/76 LOWEST AND HIGHEST AT 174/58 HR 70 MADE AWARE OF PATIENT BP AND BP MEDS AND WHEN LAST TAKEN. NEW ORDERS NOTED AND CARRIED OUT CLONIDINE 0.1MG PO Q6H PRN IF SBP ABOVE 150 PATIENT MADE AWARE, PATIENT AT THIS TIME DOES NOT WANT TO TAKE CLONIDINE, STATES " WOULD LIKE TO HAVE MY BP RECHECKED IN 30 MINS". WILL REASSESS. PATIENT ALSO REQUESTED FOR AMBIEN AMBIEN PRN GIVEN WILL CONTINUE TO MONITOR FOR EFFECTIVENESS.
[2018-07-14] MEDS: ZOLPIDEM TARTRATE 10 MG TABLET PO PRN (21:23)
[2018-07-14] MEDS: INSULIN REGULAR, HUMAN 100 UNIT/ML 3 ML VIAL SQ PRN (21:40)
[2018-07-14] MEDS ORDERED: CLONIDINE HCL 0.1 MG TABLET PO PRN (22:00)
--- NOTE | 2018-07-14 22:49 | NUR ---
RN MS NOTES REASSESSED BP PATIENT REQUESTED NOTED 176/80, HR 70 PATIENT AGREED TO TAKE PRN CLONIDINE AT THIS TIME GIVEN ORDERED EDUCATED PATIENT REGARDING REASSESSMENT OF BP IN ABOUT AN HOUR PATIENT STATES " IF SLEEPING DONT MESS WITH ME." WILL CONTINUE TO MONITOR.
--- NOTE | 2018-07-14 23:00 | NUR ---
rn ms notes picc line dressing changed sterile precaution rendered, dressing is dry, clean and intact. blood return noted and flushed.
[2018-07-15] MEDS: PROMETHAZINE HCL SYRUP 6.25 MG/5 ML UDC PO SCH ×6 (06:00→23:31)
[2018-07-15] MEDS: BLOOD SUGAR DIAGNOSTIC 1 EACH STRIP IN SCH ×4 (06:12→21:18)
--- NOTE | 2018-07-15 06:28 | NUR ---
RN MS CLOSING NOTES PATIENT IN BED AWAKE ALERT AND ORIENTED X 4, RESPIRATIONS EVEN AND UNLABORED WITH EQUAL RISE AND FALL OF CHEST, DENIES ANY PAIN OR DISCOMFORT AT THIS TIME, URINAL AND BEDSIDE COMMODE AT BEDSIDE AND WITHIN REACH, WOUND VAC AT 125MMHG WITH PROPER SEAL AND SUCTION TO RIGHT FOOT, DRESSING IS CLEAN, DRY AND INTACT, RIGHT UPPER ARM PICC LINE IN PLACE, INTACT AND PATENT WITH BLOOD RETURN. FLUSHED, CALL LIGHT AND KEPT WITHIN REACH, FLUIDS OFFERED,ALL NEEDS ATTENDED, REMAINS COMFORTABLE, WILL CONTINUE TO MONITOR PATIENT IS COMFORTABLE AT THIS TIME AND ENDORSE TO NEXT SHIFT.
[2018-07-15 08:00] VITALS: BP 159/70
[2018-07-15 08:31] LABS: BASOPHILS % (AUTO) 0.3 % (0.0-2.0); EOSINOPHILS % (AUTO) 2.6 % (0.0-6.0); HEMATOCRIT 23 % (39-51); HEMOGLOBIN 7.9 g/dL (13.5-17.5); LYMPHOCYTES # (AUTO) 2.7 /CMM (0.8-4.8); LYMPHOCYTES % (AUTO) 55.6 % (20.0-44.0); MEAN CORPUSCULAR HGB CONC 34 g/dl (31.0-36.0); MEAN CORPUSCULAR VOLUME 80 fL (80-96); MONOCYTES # (AUTO) 0.1 /CMM (0.1-1.30); MONOCYTES % (AUTO) 2.3 % (2.0-12.0); NEUTROPHILS # (AUTO) 1.9 /CMM (1.8-8.9); NEUTROPHILS % (AUTO) 39.2 % (43.0-81.0); PLATELET COUNT (AUTO) 120 /CMM (150-450); RED BLOOD CELL COUNT(AUTO) 2.86 MIL/uL (4.5-6.0); WHITE BLOOD COUNT (AUTO) 4.9 K/uL (4.3-11.0)
[2018-07-15] MEDS: SUCRALFATE 1 G TABLET PO SCH ×5 (08:34→22:00)
[2018-07-15] MEDS: GLUCERNA SHAKE 237 ML CAN PO SCH ×3 (08:34→16:21)
[2018-07-15] MEDS: AMLODIPINE BESYLATE 10 MG TABLET PO SCH (08:35)
[2018-07-15] MEDS: MYCOPHENOLATE MOFETIL 250 MG CAPSULE PO SCH ×3 (08:35→21:19)
[2018-07-15] MEDS: TACROLIMUS ANHYDROUS 1 MG CAPSULE PO SCH ×3 (08:35→21:19)
[2018-07-15] MEDS: predniSONE 5 MG TABLET PO SCH (08:36)
[2018-07-15] MEDS: VALSARTAN 80 MG TABLET PO SCH (08:36)
[2018-07-15] MEDS: CARVEDILOL 12.5 MG TABLET PO SCH ×2 (08:36→16:20)
[2018-07-15] MEDS: SIMVASTATIN 10 MG TABLET PO SCH (08:36)
[2018-07-15] MEDS: GABAPENTIN 300 MG CAPSULE PO SCH ×3 (08:36→16:20)
[2018-07-15] MEDS: LINEZOLID 600 MG TABLET PO SCH ×3 (08:42→21:18)
[2018-07-15] MEDS: CARISOPRODOL 350 MG TABLET PO SCH ×2 (08:51→16:20)
[2018-07-15] MEDS: CLOPIDOGREL BISULFATE 75 MG TABLET PO SCH (08:51)
[2018-07-15] MEDS: CLOTRIMAZOLE 1% 15 GM TUBE TP SCH ×2 (08:52→16:21)
[2018-07-15] MEDS: DAKINS HALF STRENGTH (0.25%) 480 ML BOTTLE TOP SCH (08:53)
[2018-07-15] MEDS: LEVOFLOXACIN (750 MG) 750 MG TABLET PO SCH (12:23)
--- NOTE | 2018-07-15 12:28 | NUR ---
RN NOTE SOMA MEDICATION WASTED, WITNESSED BY ANOTHER NURSE, SCARLETT LEE.
[2018-07-15] MEDS: PANTOPRAZOLE 40 MG VIAL IV SCH (15:19)
[2018-07-15 16:00] VITALS: BP 124/58
[2018-07-15] MEDS: INSULIN REGULAR, HUMAN 100 UNIT/ML 3 ML VIAL SQ PRN (17:20)
[2018-07-15] MEDS: ONDANSETRON HCL/PF 4 MG/2 ML VIAL IVP PRN (17:24)
[2018-07-15] MEDS: HYDROMORPHONE INJ 2 MG/ML DISP.SYRIN IV PRN (17:24)
--- NOTE | 2018-07-15 18:32 | NUR ---
RN NOTES PATIENT IS SCHEDULED FOR DISCHARGE, HOWEVER PER CASE MANAGEMENT, PATIENT IS STILL WAITING FOR AUTHORIZATION FOR IV ANTIBIOTICS. DR. AVILEZ REMOVED PATIENT'S WOUND VAC AND KEPT RIGHT FOOT WITH WET TO DRY DRESSING AT THIS TIME. PATIENT DENIES PAIN, NEEDS ATTENDED, CALL LIGHT WITHIN REACH, WILL ENDORSE TO DATA MANAGEMENT MANAGER FOR DEJAH.
[2018-07-15 20:00] VITALS: BP 145/66
--- NOTE | 2018-07-15 20:00 | NUR ---
MS RN NOTES RECEIVED PATIENT AWAKE IN BED AND WATCHING TV WITH NO DISTRESS NOTED. CALL LIGHT WITHIN REACH. PICC LINE ON OSMAN INTACT AND PATENT WITH NO BLEEDING OR REDNESS AT INSERTION SITE. RIGHT FOOT DRESSING INTACT, CLEAN, AND DRY WITH NO ACTIVE BLEEDING NOTED. REINSTRUCTED PATIENT ON DC PLANNING AND VERBALIZED GOOD UNDERSTANDING. BED IN LOW LOCK SETTING. ALL BELONGINGS KEPT NEAR BEDSIDE. WILL CONTINUE TO MONITOR.
[2018-07-15] MEDS: METOCLOPRAMIDE HCL 10 MG/2 ML VIAL IV PRN (23:54)
[2018-07-16] MEDS: PROMETHAZINE HCL SYRUP 6.25 MG/5 ML UDC PO SCH ×3 (06:00→17:10)
[2018-07-16] MEDS: BLOOD SUGAR DIAGNOSTIC 1 EACH STRIP IN SCH ×4 (06:36→21:39)
--- NOTE | 2018-07-16 06:42 | NUR ---
MS RN CLOSING NOTES PATIENT AWAKE IN BED WITH NO DISTRESS NOTED. CALL LIGHT WITHIN REACH. PATIENT REFUSED ALL DUE MEDS X3 DESPITE EXPLANATION OF RISKS AND BENEFITS X3. PICC LINE ON OSMAN REMAINS INTACT AND PATENT. RIGHT FOOT DRESSING INTACT, CLEAN, AND DRY WITH NO ACTIVE BLEEDING NOTED. NO C/O PAIN OR DISCOMFORT. BED IN LOW LOCK SETTING. ALL BELONGINGS KEPT NEAR BEDSIDE. WILL ENDORSE TO ONCOMING SHIFT.
[2018-07-16 08:00] VITALS: BP 143/59
[2018-07-16] MEDS: MYCOPHENOLATE MOFETIL 250 MG CAPSULE PO SCH ×2 (08:44→21:27)
[2018-07-16] MEDS: AMLODIPINE BESYLATE 10 MG TABLET PO SCH (08:44)
[2018-07-16] MEDS: SIMVASTATIN 10 MG TABLET PO SCH (08:44)
[2018-07-16] MEDS: predniSONE 5 MG TABLET PO SCH (08:44)
[2018-07-16] MEDS: VALSARTAN 80 MG TABLET PO SCH (08:44)
[2018-07-16] MEDS: CARISOPRODOL 350 MG TABLET PO SCH ×2 (08:45→17:00)
[2018-07-16] MEDS: GABAPENTIN 300 MG CAPSULE PO SCH ×3 (08:45→17:08)
[2018-07-16] MEDS: LINEZOLID 600 MG TABLET PO SCH (08:46)
[2018-07-16] MEDS: CARVEDILOL 12.5 MG TABLET PO SCH ×2 (08:46→17:08)
[2018-07-16] MEDS: TACROLIMUS ANHYDROUS 1 MG CAPSULE PO SCH ×2 (08:46→21:27)
[2018-07-16] MEDS: SUCRALFATE 1 G TABLET PO SCH ×4 (08:46→21:27)
[2018-07-16] MEDS: CLOTRIMAZOLE 1% 15 GM TUBE TP SCH ×2 (08:47→17:08)
[2018-07-16] MEDS: DAKINS HALF STRENGTH (0.25%) 480 ML BOTTLE TOP SCH (08:47)
[2018-07-16] MEDS: GLUCERNA SHAKE 237 ML CAN PO SCH ×3 (08:48→17:08)
[2018-07-16] MEDS: CLOPIDOGREL BISULFATE 75 MG TABLET PO SCH (08:48)
--- NOTE | 2018-07-16 08:56 | NUR ---
HELD PLAVIX THIS AM DUE TO LOW HEMOGLOBIN LEVEL 7.9.
[2018-07-16 11:44] LABS: BASOPHILS # (AUTO) 0.1 /CMM (0.0-0.2); BASOPHILS % (AUTO) 1.2 % (0.0-2.0); EOSINOPHILS % (AUTO) 2.8 % (0.0-6.0); HEMATOCRIT 25 % (39-51); HEMOGLOBIN 8.3 g/dL (13.5-17.5); LYMPHOCYTES # (AUTO) 2.3 /CMM (0.8-4.8); LYMPHOCYTES % (AUTO) 44.7 % (20.0-44.0); MEAN CORPUSCULAR HGB CONC 33 g/dl (31.0-36.0); MEAN CORPUSCULAR VOLUME 82 fL (80-96); MONOCYTES # (AUTO) 0.2 /CMM (0.1-1.30); MONOCYTES % (AUTO) 4.1 % (2.0-12.0); NEUTROPHILS # (AUTO) 2.4 /CMM (1.8-8.9); NEUTROPHILS % (AUTO) 47.2 % (43.0-81.0); PLATELET COUNT (AUTO) 111 /CMM (150-450); RED BLOOD CELL COUNT(AUTO) 3.09 MIL/uL (4.5-6.0); WHITE BLOOD COUNT (AUTO) 5.1 K/uL (4.3-11.0)
[2018-07-16 12:02] LABS: CREATININE 1.4 mg/dL (0.6-1.3); POTASSIUM 4.7 mmol/L (3.5-5.1)
[2018-07-16] MEDS: LEVOFLOXACIN (750 MG) 750 MG TABLET PO SCH (12:04)
[2018-07-16] MEDS: INSULIN REGULAR, HUMAN 100 UNIT/ML 3 ML VIAL SQ PRN ×3 (12:06→21:45)
[2018-07-16] MEDS: PANTOPRAZOLE 40 MG VIAL IV SCH (14:05)
[2018-07-16 16:00] VITALS: BP 119/65
--- NOTE | 2018-07-16 18:26 | NUR ---
MS RN CLOSING NOTES PATIENT IS IN STABLE CONDITION. IN NO APPARENT DISTRESS. BEDSIDE RAILS ARE UPX2. BED IS LOCKED AND LOWERED. CALL LIGHT IS WITHIN REACH. IV LINE IS INTACT AND PATENT. WILL ENDORSE CARE TO GOVERNMENT [employer]PERATIONS CONSULTANT NURSE FOR DEJAH.
--- NOTE | 2018-07-16 19:30 | NUR ---
RECEIVED PATIENT IN BED AWAKE. AO X 3, ABLE TO MAKE NEEDS KNOWN. NO ACUTE DISTRESS NOTED. DENIES ANY PAIN AT THIS TIME. PICC LINE PURPLE PORT PATENT, INTACT; FLUSHED. LFA AV SHUNT POSITIVE FOR BRUIT/THRILL. RIGHT FOOT DRESSING INTACT. SAFETY REMINDERS GIVEN. ON LOW BED WITH BILATERAL UPPER SIDE RAILS UP. CALL ALEGRIA WITHIN EASY REACH. WILL CONTINUE TO MONITOR.
[2018-07-16 20:00] VITALS: BP 115/56
--- NOTE | 2018-07-17 00:07 | NUR ---
PATIENT REFUSED PHENERGAN. PER PATIENT, HE HAS NOT COUGHED IN DAYS.
[2018-07-17] MEDS: PROMETHAZINE HCL SYRUP 6.25 MG/5 ML UDC PO SCH ×4 (06:00→17:41)
--- NOTE | 2018-07-17 06:19 | NUR ---
PATIENT ASLEEP, EASILY AROUSABLE. RESPIRATIONS EVEN. NO SIGNS OF PAIN NOTED. NO SYMPTOMS OF HYPER/HYPOGLYCEMIA. DUE MEDS GIVEN WITH NO ASE NOTED. NEEDS ATTENDED. STOOL STRAINED; NO POLYP SEEN. SAFETY PRECAUTIONS AND COMFORT MEASURES IN PLACE. WILL GIVE REPORT TO DAY SHIFT FOR CONTINUITY OF CARE.
[2018-07-17] MEDS: BLOOD SUGAR DIAGNOSTIC 1 EACH STRIP IN SCH ×3 (06:45→17:52)
[2018-07-17 06:51] LABS: BASOPHILS % (AUTO) 0.2 % (0.0-2.0); EOSINOPHILS % (AUTO) 1.5 % (0.0-6.0); HEMATOCRIT 22 % (39-51); HEMOGLOBIN 7.4 g/dL (13.5-17.5); LYMPHOCYTES # (AUTO) 2.8 /CMM (0.8-4.8); LYMPHOCYTES % (AUTO) 52.7 % (20.0-44.0); MEAN CORPUSCULAR HGB CONC 33 g/dl (31.0-36.0); MEAN CORPUSCULAR VOLUME 81 fL (80-96); MONOCYTES # (AUTO) 0.3 /CMM (0.1-1.30); MONOCYTES % (AUTO) 4.6 % (2.0-12.0); NEUTROPHILS # (AUTO) 2.2 /CMM (1.8-8.9); PLATELET COUNT (AUTO) 114 /CMM (150-450); RED BLOOD CELL COUNT(AUTO) 2.74 MIL/uL (4.5-6.0); WHITE BLOOD COUNT (AUTO) 5.4 K/uL (4.3-11.0)
[2018-07-17 07:15] LABS: CALCIUM, SERUM 8.5 mg/dL (8.5-10.1); CREATININE 1.3 mg/dL (0.6-1.3); MAGNESIUM 1.7 mg/dL (1.8-2.4); PHOSPHORUS 2.8 mg/dL (2.5-4.9); POTASSIUM 4.4 mmol/L (3.5-5.1)
--- NOTE | 2018-07-17 07:38 | NUR ---
RN OPENING NOTES PT WAS RECEIVED IN BED AT LOWEST AND LOCKED POSITION WITH SIDE RAILS UP X2, A/O X4, BREATHING EVEN AND UNLABORED ON RA, NO S/S OF PAIN OR DISTRESS NOTED AT THIS TIME, IV IS PATENT AND INTACT, SAFETY PRECAUTIONS IN PLACE, CALL LIGHT WITHIN REACH, WILL MONITOR ACCORDINGLY
[2018-07-17 08:00] VITALS: BP 149/62
[2018-07-17] MEDS: GABAPENTIN 300 MG CAPSULE PO SCH ×3 (08:47→17:35)
[2018-07-17] MEDS: SIMVASTATIN 10 MG TABLET PO SCH (08:48)
[2018-07-17] MEDS: CLOPIDOGREL BISULFATE 75 MG TABLET PO SCH ×2 (08:48→09:00)
[2018-07-17] MEDS: CARISOPRODOL 350 MG TABLET PO SCH ×2 (08:48→17:00)
[2018-07-17] MEDS: TACROLIMUS ANHYDROUS 1 MG CAPSULE PO SCH (08:49)
[2018-07-17] MEDS: SUCRALFATE 1 G TABLET PO SCH ×3 (08:50→17:35)
[2018-07-17] MEDS: MYCOPHENOLATE MOFETIL 250 MG CAPSULE PO SCH (08:50)
[2018-07-17] MEDS: VALSARTAN 80 MG TABLET PO SCH (08:52)
[2018-07-17] MEDS: predniSONE 5 MG TABLET PO SCH (08:52)
[2018-07-17] MEDS: AMLODIPINE BESYLATE 10 MG TABLET PO SCH (08:52)
[2018-07-17] MEDS: CARVEDILOL 12.5 MG TABLET PO SCH ×2 (08:53→17:36)
[2018-07-17] MEDS: GLUCERNA SHAKE 237 ML CAN PO SCH ×3 (09:00→17:41)
[2018-07-17] MEDS: DAKINS HALF STRENGTH (0.25%) 480 ML BOTTLE TOP SCH (09:01)
[2018-07-17] MEDS: CLOTRIMAZOLE 1% 15 GM TUBE TP SCH ×2 (09:01→17:41)
--- NOTE | 2018-07-17 09:30 | NUR ---
RN NOTES PLAVIX HELD DUE TO TO LOW HEMOGLOBIN OF 7.4 AND BECAUSE PATIENT ALSO REFUSED MED
[2018-07-17] MEDS: Magnesium 1GM/D5W 100ML PREMIX 100 ML IV SCH ×2 (10:14→11:17)
[2018-07-17] MEDS: INSULIN REGULAR, HUMAN 100 UNIT/ML 3 ML VIAL SQ PRN ×2 (12:10→17:50)
[2018-07-17] MEDS: PANTOPRAZOLE 40 MG VIAL IV SCH (14:57)
[2018-07-17 15:58] VITALS: BP 135/56
[2018-07-17 17:36] VITALS: BP 133/56
--- NOTE | 2018-07-17 18:36 | NUR ---
DISCHARGE NOTES PT WAS DISCHARGED AT THIS TIME IN MEDICALLY STABLE CONDITION TO [facility] WHERE REPORT WAS GIVEN TO TONY. ALL D/C PAPERWORK WAS DISCUSSED AND SIGNED BY THE PATIENT WELL THE BELONGING LIST. PICC LINE WAS LEFT IN AFTER CONSULTING WITH CHARGE NURSE RAKAN. PATIENT REFUSED SKIN/WOUND PHOTO DOCUMENTATION DUE TO NOT WANTING DRESSING TO BE CHANGED, EDUCATION WAS PROVIDED BUT HE STILL REFUSED. ID BAND WAS REMOVED. ALL NEEDS WERE ATTENDED TO DURING THEIR STAY. ETA TO [facility] 15-35 MIN
--- NOTE | 2018-07-17 18:36 | NUR ---
RN NOTES REPORT GIVEN TO TONY ENRIQUEZ [facility]
== END 2018-07-17 18:44 | DRG 305 ==
LOC: ER 18:16 → MED 23:24
PROVIDERS: ADMIT Internal Medicine; ATTEND Nurse Practitioner Acute Care
PROC: 30233N1 Transfusion of Nonautologous Red Blood Cells into Peripheral Vein, Percutaneous Approach (ICD-10-PCS; principal; 2018-06-29)
PROC: B548ZZA Ultrasonography of Superior Vena Cava, Guidance (ICD-10-PCS; 2018-07-01)
PROC: 02HV33Z Insertion of Infusion Device into Superior Vena Cava, Percutaneous Approach (ICD-10-PCS; 2018-07-01)
PROC: 0JBQ0ZZ Excision of Right Foot Subcutaneous Tissue and Fascia, Open Approach (ICD-10-PCS; 2018-07-01)
PROC: 0Y6M0Z9 Detachment at Right Foot, Partial 1st Ray, Open Approach (ICD-10-PCS; 2018-07-05)
PROC: 0Y6M0ZD Detachment at Right Foot, Partial 4th Ray, Open Approach (ICD-10-PCS; 2018-07-05)
PROC: 0Y6M0ZF Detachment at Right Foot, Partial 5th Ray, Open Approach (ICD-10-PCS; 2018-07-05)
PROC: 0Y6M0ZB Detachment at Right Foot, Partial 2nd Ray, Open Approach (ICD-10-PCS; 2018-07-05)
PROC: 0Y6M0ZC Detachment at Right Foot, Partial 3rd Ray, Open Approach (ICD-10-PCS; 2018-07-05)
PROC: 0DB78ZX Excision of Stomach, Pylorus, Via Natural or Artificial Opening Endoscopic, Diagnostic (ICD-10-PCS; 2018-07-14)
PROC: 0DB68ZX Excision of Stomach, Via Natural or Artificial Opening Endoscopic, Diagnostic (ICD-10-PCS; 2018-07-14)
PROC: 0DB88ZZ Excision of Small Intestine, Via Natural or Artificial Opening Endoscopic (ICD-10-PCS; 2018-07-14)
DX: E11.52 Type 2 diabetes mellitus with diabetic peripheral angiopathy with gangrene (principal); T86.12 Kidney transplant failure; E11.22 Type 2 diabetes mellitus with diabetic chronic kidney disease; E11.42 Type 2 diabetes mellitus with diabetic polyneuropathy; E44.0 Moderate protein-calorie malnutrition; D62 Acute posthemorrhagic anemia; E11.43 Type 2 diabetes mellitus with diabetic autonomic (poly)neuropathy; E11.621 Type 2 diabetes mellitus with foot ulcer; M86.9 Osteomyelitis, unspecified; E87.1 Hypo-osmolality and hyponatremia; E11.69 Type 2 diabetes mellitus with other specified complication; I12.0 Hypertensive chronic kidney disease with stage 5 chronic kidney disease or end stage renal disease; N18.6 End stage renal disease; L97.519 Non-pressure chronic ulcer of other part of right foot with unspecified severity; Z99.2 Dependence on renal dialysis; Z94.0 Kidney transplant status; Z79.4 Long term (current) use of insulin; Z79.899 Other long term (current) drug therapy; E11.65 Type 2 diabetes mellitus with hyperglycemia; D63.8 Anemia in other chronic diseases classified elsewhere; E78.5 Hyperlipidemia, unspecified; D50.9 Iron deficiency anemia, unspecified; D47.3 Essential (hemorrhagic) thrombocythemia; Z86.73 Personal history of transient ischemic attack (TIA), and cerebral infarction without residual deficits; Z86.010 Personal history of colon polyps; Z89.412 Acquired absence of left great toe; Z89.411 Acquired absence of right great toe; Y83.0 Surgical operation with transplant of whole organ as the cause of abnormal reaction of the patient, or of later complication, without mention of misadventure at the time of the procedure; K25.9 Gastric ulcer, unspecified as acute or chronic, without hemorrhage or perforation; K31.7 Polyp of stomach and duodenum; D12.2 Benign neoplasm of ascending colon; K58.9 Irritable bowel syndrome, unspecified; K31.84 Gastroparesis; E86.1 Hypovolemia
CPT/HCPCS: 36415; 71045-TC; 73630-TC; 74018; 80048-TC; 80076-TC; 80197; 82247-TC; 82248-TC; 82272-TC; 82728-TC; 82962-TC; 83010; 83021; 83540-TC; 83615-TC; 83735-TC; 84100-TC; 85025-TC; 85027-TC; 85610-TC; 85652-TC; 85660; 85730-TC; 86850-TC; 86921-TC; 87081-TC; 88305-TC; 88311-TC; 88313-TC; 88342; 97110-TC; 97116-TC; 97530-TC; A4216; A6253; A6402; A6403; C9113; G0378; J0690; J0878; J0885; J1170; J1650; J1815; J2020; J2250; J2405; J2704; J2765; J2916; J2997; J3010; J3475; J3490; J7030; J7040; J7050; J7507; J7512; J7517; P9016-BL; Q0169